=== PATIENT | female | born 1945 | race Caucasian/White ===

== ENCOUNTER 2018-02-02 10:21 | Observation (INO) | payer OTHER ==
--- NOTE | 2018-02-02 11:03 | PDOC ---
History of Present Illness <Ced Murrell - Last Filed: 02/02/18 15:35> - History of Present Illness Initial Comments: The patient is a 72 year old with PMHx of chronic dizziness, HTN, HLD, weak heart, asthma, colon polyps, who was BIBA and presents with right arm injury today. The patient states that she had a colonoscopy yesterday and 3 polyps were found and biopsied. She states that her diarrhea stopped soon after the colonoscopy. She states that she has a h/o chronic dizziness and this morning she felt light-headed and fell on her right side injuring her right wrist. She denies hitting her head or neck. She denies blood per rectum. She denies recent fevers, chills, or headache. She denies recent nausea, vomit,or constipation. She denies recent dysuria, frequency, urgency or hematuria. She denies recent chest pain or shortness of breath. Allergies: NKDA Past surgical history: None reported. Primary Care Physician: Not on Staff <Vicki Purcell - Last Filed: 02/02/18 15:40> - General Chief Complaint: Injury Stated Complaint: Bone Injury Time Seen by Provider: 02/02/18 10:43 Past History <Ced Murrell - Last Filed: 02/02/18 15:35> <Vicki Purcell - Last Filed: 02/02/18 15:40> - Past Medical History Allergies/Adverse Reactions: Allergies Allergy/AdvReac Type Severity Reaction Status Date / Time shellfish derived Allergy Verified 02/02/18 11:17 Home Medications: Ambulatory Orders Aspirin 81 mg PO DAILY 02/02/18 Calcium (Oyster Shell) [Os-Miguel 500Mg -] 500 mg PO BID 02/02/18 Furosemide [Lasix] 20 mg PO DAILY 02/02/18 Lisinopril [Zestril] 2.5 mg PO DAILY 02/02/18 Metformin HCl [Glucophage] 500 mg PO BID 02/02/18 Montelukast Sodium [Singulair] 10 mg PO DAILY 02/02/18 Ranolazine [Ranexa] 1,000 mg PO BID 02/02/18 Rosuvastatin Calcium [Crestor] 40 mg PO DAILY 02/02/18 Sertraline HCl 50 mg PO DAILY 02/02/18 Sitagliptin Phosphate [Januvia] 100 mg PO DAILY 02/02/18 Zolpidem Tartrate [Ambien] 5 mg PO HS 02/02/18 Review of Systems - Review of Systems Comments:: CONSTITUTIONAL: No fever, no chills, no fatigue EYES: No visual changes ENT: No ear pain, no sore throat CARDIOVASCULAR: No chest pain, no palpitations RESPIRATORY: No cough, no SOB GI: No abdominal pain, no nausea, no vomiting, no constipation, no diarrhea GENITOURINARY: No dysuria, no frequency, no hematuria MUSKULOSKELETAL: +right wrist pain. No shoulder pain. No back pain, no joint pain, no myalgias SKIN: No rash NEURO: No headache. +dizziness. <Vicki Purcell - Last Filed: 02/02/18 15:40> *Physical Exam - Physical Exam Comments: 02/02/18 15:36 EXAMINATION CONSTITUTIONAL: Awake and alert, well-nourished, in moderate distress HEAD: Normocephalic; atraumatic EYES: PERRL; EOM intact ENMT: External appears normal; normal oropharynx NECK: Supple; non-tender; no cervical lymphadenopathy CARD: Normal S1, S2; no murmurs, rubs, or gallops RESP: Normal chest excursion with respiration; breath sounds clear and equal bilaterally; no wheezes, rhonchi, or rales ABD: Soft, non-distended; non-tender; no palpable organomegaly, no palpable hernias EXT: + Obvious deformity to the distal right wrist with significant tender to palpation; distal pulses intact; neurovascularly intact distally SKIN: Warm, dry, no rash NEURO: Cranial nerves II through XII grossly intact; motor is 5 of 5 <Ced Murrell - Last Filed: 02/02/18 15:35> Heart Score/ECG Review - ECG Intrepretation Comment:: EKG interpretation: Normal sinus rhythm Nonspecific T wave abnormality Vent rate 69 bpm <Vicki Purcell - Last Filed: 02/02/18 15:40> ED Treatment Course - LABORATORY CBC & Chemistry Diagram: 02/02/18 11:45 02/02/18 11:45 <Ced Murrell - Last Filed: 02/02/18 15:35> - LABORATORY CBC & Chemistry Diagram: 02/02/18 11:45 02/02/18 11:45 - Consult/PCP Time Called: 14:20 (Awaiting callback from Dr. Ghosh) - Additional Consults Time Called: 12:40 (Paged overhead 2x) Consult/PCP: Daniel -ortho Time Called: 13:11 (Left message at office for Dr. Sanchez) <Vicki Purcell - Last Filed: 02/02/18 15:40> Medical Decision Making - Medical Decision Making 02/02/18 15:37 Patient is a 72-year-old female with history of hypertension, hyperlipidemia and diabetes who presents with traumatic deformity to the right wrist consistent with a comminuted, intra-articular, impacted, dorsally angulated distal right radial fracture. Case discussed with orthopedics. Patient will require ORIF. At this time, patient is requiring frequent re-dosing of IV morphine. Will place a knob's for pain control. <Ced Murrell - Last Filed: 02/02/18 15:35> *DC/Admit/Observation/Transfer - Discharge Dispostion Decision to Admit order: Yes - Attestations Physician Attestion: 02/02/18 15:35 The documentation was prepared by the scribe under my direct supervision. I have reviewed the documentation which correctly represents the findings, medical decision-making and critical action taken by me. <Ced Murrell - Last Filed: 02/02/18 15:35> - Attestations Scribe Attestion: 02/02/18 11:20 Documentation prepared by Vicki Purcell, acting as medical health researcher for Ced Murrell MD. <Vicki Purcell - Last Filed: 02/02/18 15:40> Diagnosis at time of Disposition: Weakness Colles' fracture of right radius Qualifiers: Encounter type: initial encounter Fracture type: closed Qualified Code(s): S52.531A - Colles' fracture of right radius, initial encounter for closed fracture Fracture of ulnar styloid Qualifiers: Encounter type: initial encounter Fracture type: closed Fracture alignment: nondisplaced Laterality: right Qualified Code(s): S52.614A - Nondisplaced fracture of right ulna styloid process, initial encounter for closed fracture - Discharge Dispostion Condition at time of disposition: Fair - Referrals Referrals: ON STAFF,NOT [Primary Care Provider] - - Patient Instructions - Post Discharge Activity
[2018-02-02] MEDS ORDERED: SODIUM CHLORIDE 1,000 ML IV STA (11:09)
[2018-02-02] MEDS ORDERED: morphine SULFATE 4 MG/ML VIAL IVPUSH ONE ×2 (11:09→16:25)
[2018-02-02 12:03] LABS: BASO % 0.4 % (0-2.0); EOS % 0.7 % (0-4.5); HEMATOCRIT 37.6 % (32.4-45.2); HEMOGLOBIN 12.5 GM/dL (10.7-15.3); LYMPH % 41.3 % (8-40); MCH 29.7 pg (25.7-33.7); MCHC 33.2 g/dl (32.0-36.0); MEAN CELL VOLUME 89.4 fl (80-96); MEAN PLT VOLUME 9.1 fl (7.5-11.1); MONO % 7.7 % (3.8-10.2); NEUT % 49.9 % (42.8-82.8); PLATELET COUNT 184 K/MM3 (134-434); RDW 13.7 % (11.6-15.6); WHITE BLOOD COUNT 9.4 K/mm3 (4.0-10.0)
[2018-02-02 12:18] LABS: INR 1.14 (0.83-1.09); PROTHROMBIN TIME (PATIENT) 12.9 SEC (9.7-13.0)
[2018-02-02 12:23] LABS: ALBUMIN 3.8 g/dl (3.4-5.0); ALK PHOS 55 U/L (45-117); ANION GAP 11 MMOL/L (8-16); BILIRUBIN,TOTAL 0.6 mg/dL (0.2-1.0); BLOOD UREA NITROGEN 10 mg/dL (7-18); CHLORIDE 108 mmol/L (98-107); CO2 23 mmol/L (21-32); CREATININE 0.9 mg/dL (0.55-1.02); GLUCOSE,RANDOM 108 mg/dL (74-106); POTASSIUM 4.1 mmol/L (3.5-5.1); SGOT/AST 43 U/L (15-37); SGPT/ALT 40 U/L (12-78); SODIUM 142 mmol/L (136-145)
[2018-02-02] MEDS ORDERED: morphine SULFATE 4 MG/ML VIAL ONE ×2 (12:56→16:26)
[2018-02-02] MEDS ORDERED: morphine CARPU-JECT 4 MG/1 ML DISP.SYRIN IVPUSH ONE ×2 (12:56→14:26)
[2018-02-02 14:03] LABS: URINE APPEARANCE CLEAR; URINE BILIRUBIN NEGATIVE (<2.0 mg/dL); URINE COLOR LTYELLOW; URINE GLUCOSE (UA) NEGATIVE (NEGATIVE); URINE KETONE NEGATIVE (NEGATIVE); URINE LEUK ESTERASE TRACE (NEGATIVE); URINE NITRITE NEGATIVE (NEGATIVE); URINE PROTEIN NEGATIVE (NEGATIVE); URINE UROBILINOGEN NEGATIVE mg/dL (0.2-1.0)
[2018-02-02] MEDS ORDERED: LIDOCAINE HCL 2% (50ML VIAL) SQ ONE (14:15)
[2018-02-02 14:19] LABS: EPI CELLS RARE /HPF (FEW); URINE MUCUS RARE
[2018-02-02] MEDS ORDERED: MORPHINE SULFATE 2 MG/ML VIAL ONE (14:27)
[2018-02-02] MEDS ORDERED: metFORMIN HCL 500 MG TABLET (FP) PO ONE (14:40)
[2018-02-02] MEDS ORDERED: metFORMIN HCL 500 MG TABLET (FP) ONE (16:26)
--- NOTE | 2018-02-02 17:13 | HP ---
Admitting History and Physical - Primary Care Physician PCP: Benja Ghosh - Admission Chief Complaint: fell History of Present Illness: -72 year old with PMHx of chronic dizziness, HTN, HLD, weak heart, asthma, colon polyps, who was BIBA and presents with right arm injury today. The patient states that she had a colonoscopy yesterday and 3 polyps were found and biopsied. She states that her diarrhea stopped soon after the colonoscopy. She states that she has a h/o chronic dizziness and this morning she felt light- headed and fell on her right side injuring her right wrist.did not hit head. - Past Medical History Cardiovascular: Yes: HTN, Hyperlipdemia Endocrine: Yes: Diabetes Mellitus - Smoking History Smoking history: Never smoked Have you smoked in the past 12 months: No - Alcohol/Substance Use Hx Alcohol Use: No Home Medications - Allergies Allergies/Adverse Reactions: Allergies Allergy/AdvReac Type Severity Reaction Status Date / Time shellfish derived Allergy Verified 02/02/18 11:17 - Home Medications Home Medications: Ambulatory Orders Aspirin 81 mg PO DAILY 02/02/18 Calcium (Oyster Shell) [Os-Miguel 500Mg -] 500 mg PO BID 02/02/18 Furosemide [Lasix] 20 mg PO DAILY 02/02/18 Lisinopril [Zestril] 2.5 mg PO DAILY 02/02/18 Metformin HCl [Glucophage] 500 mg PO BID 02/02/18 Montelukast Sodium [Singulair] 10 mg PO DAILY 02/02/18 Ranolazine [Ranexa] 1,000 mg PO BID 02/02/18 Rosuvastatin Calcium [Crestor] 40 mg PO DAILY 02/02/18 Sertraline HCl 50 mg PO DAILY 02/02/18 Sitagliptin Phosphate [Januvia] 100 mg PO DAILY 02/02/18 Zolpidem Tartrate [Ambien] 5 mg PO HS 02/02/18 Physical Examination Vital Signs: Vital Signs Temperature 98 F 02/02/18 10:21 Pulse Rate 75 02/02/18 16:35 Respiratory Rate 18 02/02/18 16:35 Blood Pressure 99/57 02/02/18 16:35 O2 Sat by Pulse Oximetry (%) 95 02/02/18 16:35 Constitutional: Yes: Mild Distress HENT: Yes: Atraumatic Neck: Yes: Supple Cardiovascular: Yes: Regular Rate and Rhythm Respiratory: Yes: CTA Bilaterally Gastrointestinal: Yes: Normal Bowel Sounds Extremities: Yes: Other (R hand in dressing/splint) Neurological: Yes: Alert, Oriented Labs: CBC, BMP 02/02/18 11:45 02/02/18 11:45 Imaging - Results X-ray: Report Reviewed Problem List - Problems (1) Colles' fracture of right radius Assessment/Plan: admitted for pain control surgery next week will dc once pain is better controlled Code(s): S52.531A - COLLES' FRACTURE OF RIGHT RADIUS, INIT FOR CLOS FX Qualifiers: Encounter type: initial encounter Fracture type: closed Qualified Code(s) : S52.531A - Colles' fracture of right radius, initial encounter for closed fracture Assessment/Plan Laboratory Tests 02/02/18 02/02/18 02/02/18 11:16 11:45 11:45 WBC 9.4 RBC 4.20 Hgb 12.5 Hct 37.6 MCV 89.4 MCH 29.7 MCHC 33.2 RDW 13.7 Plt Count 184 MPV 9.1 Absolute Neuts (auto) 4.7 Neutrophils % 49.9 Lymphocytes % 41.3 H Monocytes % 7.7 Eosinophils % 0.7 Basophils % 0.4 Nucleated RBC % 0 PT with INR 12.90 INR 1.14 H Sodium 142 Potassium 4.1 Chloride 108 H Carbon Dioxide 23 Anion Gap 11 BUN 10 Creatinine 0.9 Creat Clearance w eGFR > 60 Random Glucose 108 H Calcium 9.0 Magnesium Total Bilirubin 0.6 AST 43 H ALT 40 Alkaline Phosphatase 55 Total Protein 7.0 Albumin 3.8 Urine Color Urine Appearance Urine pH Ur Specific [place] Urine Protein Urine Glucose (UA) Urine Ketones Urine Blood Urine Nitrite Urine Bilirubin Urine Urobilinogen Ur Leukocyte Esterase Urine WBC (Auto) Urine RBC (Auto) Ur Epithelial Cells Urine Mucus 02/02/18 02/02/18 12:05 13:43 WBC RBC Hgb Hct MCV MCH MCHC RDW Plt Count MPV Absolute Neuts (auto) Neutrophils % Lymphocytes % Monocytes % Eosinophils % Basophils % Nucleated RBC % PT with INR INR Sodium Potassium Chloride Carbon Dioxide Anion Gap BUN Creatinine Creat Clearance w eGFR Random Glucose Calcium Magnesium 2.0 Total Bilirubin AST ALT Alkaline Phosphatase Total Protein Albumin Urine Color Ltyellow Urine Appearance Clear Urine pH 8.0 Ur Specific [place] 1.008 Urine Protein Negative Urine Glucose (UA) Negative Urine Ketones Negative Urine Blood Negative Urine Nitrite Negative Urine Bilirubin Negative Urine Urobilinogen Negative Ur Leukocyte Esterase Trace Urine WBC (Auto) 2 Urine RBC (Auto) 1 Ur Epithelial Cells Rare Urine Mucus Rare Active Medications Generic Name Dose Route Start Last Admin Trade Name Freq PRN Reason Stop Dose Admin Aspirin 81 mg 02/03/18 10:00 Asa - PO DAILY [facility] Docusate Sodium 100 mg 02/02/18 22:00 Colace - PO BID [facility] Furosemide 20 mg 02/03/18 10:00 Lasix - PO DAILY [facility] Metformin HCl 500 mg 02/02/18 22:00 Glucophage - PO BID [facility] Montelukast Sodium 10 mg 02/03/18 10:00 Singulair - PO DAILY [facility] Non-Formulary Medication 2.5 mg 02/03/18 10:00 Lisinopril [Zestril] PO DAILY [facility] Oxycodone HCl 10 mg 02/02/18 19:46 Roxicodone - PO Q6H PRN PAIN LEVEL 4 - 6 Rosuvastatin Calcium 40 mg 02/03/18 10:00 Crestor - PO DAILY [facility] Sertraline HCl 50 mg 02/03/18 10:00 Zoloft - PO DAILY [facility] Sitagliptin Phosphate 100 mg 02/03/18 10:00 Januvia - PO DAILY [facility]
[2018-02-02 17:47] VITALS: BMI 31.3
[2018-02-02] MEDS ORDERED: FENTANYL PATCH WASTE MC PRN (20:43)
[2018-02-02] MEDS ORDERED: fentaNYL 25mcg/hr PATCH.TD72 TD SCH (20:45)
[2018-02-02] MEDS: oxyCODONE HCL 5 MG TABLET PO PRN (20:48)
[2018-02-02] MEDS ORDERED: ZOLPIDEM TARTRATE 5 MG TABLET PO SCH (22:00)
[2018-02-02] MEDS ORDERED: ROSUVASTATIN CA 40 MG TABLET PO SCH (22:00)
[2018-02-02] MEDS: DOCUSATE SODIUM 100 MG CAPSULE (FP) PO SCH (22:18)
[2018-02-02] MEDS: ROSUVASTATIN CA 20 MG TABLET (FP) PO SCH (22:18)
[2018-02-02] MEDS: MONTELUKAST NA 10 MG TABLET PO SCH (22:19)
[2018-02-03] MEDS: oxyCODONE HCL 5 MG TABLET PO PRN ×3 (03:41→14:58)
[2018-02-03] MEDS: sitaGLIPtin PHOSPHATE 100 MG TABLET (FP) PO SCH (06:35)
[2018-02-03] MEDS: metFORMIN HCL 500 MG TABLET (FP) PO SCH ×2 (06:35→17:28)
--- NOTE | 2018-02-03 08:59 | CON.ORTH ---
Consult Reason for Consultation:: right wrist fx - Past Medical History Cardio/Vascular: Yes: HTN, Hyperlipdemia Endocrine: Yes: Diabetes Mellitus - Alcohol/Substance Use Hx Alcohol Use: No - Smoking History Smoking history: Never smoked Have you smoked in the past 12 months: No Home Medications - Allergies Allergies/Adverse Reactions: Allergies Allergy/AdvReac Type Severity Reaction Status Date / Time shellfish derived Allergy Verified 02/02/18 11:17 - Home Medications Home Medications: Ambulatory Orders Aspirin 81 mg PO DAILY 02/02/18 Calcium (Oyster Shell) [Os-Miguel 500Mg -] 500 mg PO BID 02/02/18 Furosemide [Lasix] 20 mg PO DAILY 02/02/18 Lisinopril [Zestril] 2.5 mg PO DAILY 02/02/18 Metformin HCl [Glucophage] 500 mg PO BID 02/02/18 Montelukast Sodium [Singulair] 10 mg PO DAILY 02/02/18 Ranolazine [Ranexa] 1,000 mg PO BID 02/02/18 Rosuvastatin Calcium [Crestor] 40 mg PO DAILY 02/02/18 Sertraline HCl 50 mg PO DAILY 02/02/18 Sitagliptin Phosphate [Januvia] 100 mg PO DAILY 02/02/18 Zolpidem Tartrate [Ambien] 5 mg PO HS 02/02/18 Physical Exam for Ortho Vital Signs: Vital Signs Temperature 98.3 F 02/03/18 05:21 Pulse Rate 68 02/03/18 05:21 Respiratory Rate 18 02/03/18 05:21 Blood Pressure 110/60 02/03/18 05:21 O2 Sat by Pulse Oximetry (%) 95 02/02/18 19:48 Labs: CBC, BMP 02/02/18 11:45 02/02/18 11:45 INR, PTT INR 1.14 (0.83-1.09) H 02/02/18 11:16 - Upper Extremity Wrist: Yes: Right, Deformity, Pain, Swelling, Tenderness, Other (splint intact, nvi) Imaging - Results X-ray: Report Reviewed, Image Reviewed Assessment/Plan 72 year old with PMHx of chronic dizziness, HTN, HLD, weak heart, asthma, colon polyps, who was BIBA and presents with right arm injury today. The patient states that she had a colonoscopy yesterday and 3 polyps were found and biopsied. She states that her diarrhea stopped soon after the colonoscopy. She states that she has a h/o chronic dizziness and this morning she felt light- headed and fell on her right side injuring her right wrist.did not hit head. a/p- right displaced distal radius fx Risks and benefits were d/w pt and daughter in detail will need orif Pt may be d/c'd as surgery will not take place until next week due to swelling Strict elevation f/u in the office on Wednesday to schedule surgery d/w with daughter who understands and agrees with plan d/w Dr. Sanchez
[2018-02-03] MEDS: LISINOPRIL 5 MG TABLET (FP) PO SCH (10:45)
[2018-02-03] MEDS: DOCUSATE SODIUM 100 MG CAPSULE (FP) PO SCH ×2 (10:45→21:47)
[2018-02-03] MEDS: ASPIRIN 81 MG CHEWABLE TABLETS PO SCH (10:45)
[2018-02-03] MEDS: FUROSEMIDE 20 MG TABLET (FP) PO SCH (10:46)
[2018-02-03] MEDS: SERTRALINE HCL 50 MG TABLET (FP) PO SCH (10:48)
--- NOTE | 2018-02-03 11:56 | CON.CARD ---
Consult Consult Specialty:: Cardiology Referred by:: Benja Ghosh MD Reason for Consultation:: Pre-operative cardiovascular evaluation - History of Present Illness Chief Complaint: Right arm pain post fall History of Present Illness: 72 year old with PMHx of chronic dizziness, HTN, HLD, cardiomyopathy, asthma, colon polyps, presented after fall without syncope with right displaced distal radius fx which was immobilized and planned for ORIF next week. She sees Dr. Dupree in [place] for cardiology. Patient reports being at baseline dyspnea on exertion, but denies chest pain, palpitations, near or true syncope, orthopnea, PND or LE edema. - History Source History Provided By: Medical Record Limitations to Obtaining History: Poor Historian - Past Medical History Cardio/Vascular: Yes: HTN, Hyperlipdemia Endocrine: Yes: Diabetes Mellitus - Alcohol/Substance Use Hx Alcohol Use: No - Smoking History Smoking history: Never smoked Have you smoked in the past 12 months: No Home Medications - Allergies Allergies/Adverse Reactions: Allergies Allergy/AdvReac Type Severity Reaction Status Date / Time shellfish derived Allergy Verified 02/02/18 11:17 - Home Medications Home Medications: Ambulatory Orders Aspirin 81 mg PO DAILY 02/02/18 Calcium (Oyster Shell) [Os-Miguel 500Mg -] 500 mg PO BID 02/02/18 Furosemide [Lasix] 20 mg PO DAILY 02/02/18 Lisinopril [Zestril] 2.5 mg PO DAILY 02/02/18 Metformin HCl [Glucophage] 500 mg PO BID 02/02/18 Montelukast Sodium [Singulair] 10 mg PO DAILY 02/02/18 Ranolazine [Ranexa] 1,000 mg PO BID 02/02/18 Rosuvastatin Calcium [Crestor] 40 mg PO DAILY 02/02/18 Sertraline HCl 50 mg PO DAILY 02/02/18 Sitagliptin Phosphate [Januvia] 100 mg PO DAILY 02/02/18 Zolpidem Tartrate [Ambien] 5 mg PO HS 02/02/18 Review of Systems - Review of Systems Musculoskeletal: reports: Extremity Pain (Right arm pain) Vital Signs: Vital Signs Temperature 98.5 F 02/03/18 09:06 Pulse Rate 75 02/03/18 09:06 Respiratory Rate 18 02/03/18 09:06 Blood Pressure 131/69 02/03/18 09:06 O2 Sat by Pulse Oximetry (%) 95 02/02/18 19:48 Constitutional: Yes: No Distress, Calm, Thin Neck: Yes: Supple Respiratory: Yes: Regular, CTA Bilaterally Gastrointestinal: Yes: Normal Bowel Sounds, Soft Cardiovascular: Yes: Regular Rate and Rhythm JVD: No Carotid Bruit: No Heart Sounds: Yes: S1, S2 Murmur: Yes: Systolic Murmur, Grade 1 Edema: No - Other Data Labs, Other Data: CBC, BMP 02/02/18 11:45 02/02/18 11:45 INR, PTT INR 1.14 (0.83-1.09) H 02/02/18 11:16 NSR @ 69 with nonspec T wave changes Imaging - Results Chest X-ray: Report Reviewed (NAD) Problem List - Problems (1) Cardiomyopathy Code(s): I42.9 - CARDIOMYOPATHY, UNSPECIFIED Qualifiers: Cardiomyopathy type: unspecified Qualified Code(s): I42.9 - Cardiomyopathy , unspecified (2) Hyperlipidemia associated with type 2 diabetes mellitus Code(s): E11.69 - TYPE 2 DIABETES MELLITUS WITH OTHER SPECIFIED COMPLICATION; E78.5 - HYPERLIPIDEMIA, UNSPECIFIED (3) Type 2 diabetes mellitus Code(s): E11.9 - TYPE 2 DIABETES MELLITUS WITHOUT COMPLICATIONS Qualifiers: Diabetes mellitus truck terminal manager insulin use: without truck terminal manager use (4) Diastolic dysfunction Code(s): I51.9 - HEART DISEASE, UNSPECIFIED (5) Pre-operative cardiovascular examination Code(s): Z01.810 - ENCOUNTER FOR PREPROCEDURAL CARDIOVASCULAR EXAMINATION (6) Colles' fracture of right radius Code(s): S52.531A - COLLES' FRACTURE OF RIGHT RADIUS, INIT FOR CLOS FX Qualifiers: Encounter type: initial encounter Fracture type: closed Qualified Code(s) : S52.531A - Colles' fracture of right radius, initial encounter for closed fracture (7) Hypertensive cardiovascular disease Code(s): I11.9 - HYPERTENSIVE HEART DISEASE WITHOUT HEART FAILURE Qualifiers: Heart failure presence: without heart failure Qualified Code(s): I11.9 - Hypertensive heart disease without heart failure Assessment/Plan 1. Pre-operative cardiovascular evaluation prior to ORIF right displaced distal radius fx as outpatient 2. Cardiomyopathy 3. HTN 4. Hyperlipidemia 5. Asthma 6. Type 2 DM 7. Diastolic dysfunction P:1. Attempt to obtain and review records from Dr. Dupree office, clinically given absence of symptoms of acute coronary syndrome, decompensated CHF or malignant arrhythmia, may proceed with ORIF right distal radial fx from CV- standpoint without further testing 2. Hold ASA shu-op, continue Lasix 20 qd, lisinopril 2.5 qd, Crestor 40 qd, Ranexa 100 0 bid 3. Ideally patient should see Dr. Dupree in office for pre-op CV evaluation as outpatient prior to surgery to review previous testing results 4. Thank you for consultative opportunity
--- NOTE | 2018-02-03 12:49 | CONSULT ---
Consult Consult Specialty:: PM&R - History of Present Illness Chief Complaint: R wrist pain History of Present Illness: This is a 72 year old woman with a medical history of chronic dizziness, HTN, HLD, cardiomyopathy, asthma, colon polyps, DM, who presented to the ED 02/02/18 following a fall resulting in R wrist pain. R wrist/ forearm XR showed distal radial fx. Ortho consult recommended ORIF once swelling improves, tentatively for next week. Cardiology was consulted for cardiac clearance. Physiatry is being consulted for further recommendations. - History Source History Provided By: Patient, Medical Record - Past Medical History Cardio/Vascular: Yes: HTN, Hyperlipdemia Endocrine: Yes: Diabetes Mellitus - Alcohol/Substance Use Hx Alcohol Use: No - Smoking History Smoking history: Never smoked Have you smoked in the past 12 months: No - Social History Usual Living Arrangement: Alone (lives alone in apartment without stairs, previously ambulated with both SC and RW) Home Medications - Allergies Allergies/Adverse Reactions: Allergies Allergy/AdvReac Type Severity Reaction Status Date / Time shellfish derived Allergy Verified 02/02/18 11:17 - Home Medications Home Medications: Ambulatory Orders Aspirin 81 mg PO DAILY 02/02/18 Calcium (Oyster Shell) [Os-Miguel 500Mg -] 500 mg PO BID 02/02/18 Furosemide [Lasix] 20 mg PO DAILY 02/02/18 Lisinopril [Zestril] 2.5 mg PO DAILY 02/02/18 Metformin HCl [Glucophage] 500 mg PO BID 02/02/18 Montelukast Sodium [Singulair] 10 mg PO DAILY 02/02/18 Ranolazine [Ranexa] 1,000 mg PO BID 02/02/18 Rosuvastatin Calcium [Crestor] 40 mg PO DAILY 02/02/18 Sertraline HCl 50 mg PO DAILY 02/02/18 Sitagliptin Phosphate [Januvia] 100 mg PO DAILY 02/02/18 Zolpidem Tartrate [Ambien] 5 mg PO HS 02/02/18 Review of Systems Findings/Remarks: denies fevers, chills, hearing/ vision/ mood changes, CP, SOB, abdominal pain, nausea, vomiting, diarrhea, dysuria, numbness/ paresthesias BUE/ BLE. She notes being constipated as well as R wrist pain without other muscle/ joint pain. Physical Exam Vital Signs: Vital Signs Temperature 98.5 F 02/03/18 09:06 Pulse Rate 75 02/03/18 09:06 Respiratory Rate 18 02/03/18 09:06 Blood Pressure 131/69 02/03/18 09:06 O2 Sat by Pulse Oximetry (%) 95 02/03/18 11:48 Musculoskeletal: Yes: Other (General: calm elderly HF sitting in chair NAD N/M: full LUE ROM, 4+/5 LUE; unable to range R shoulder due to pain and unable to range remainder of LUE due to long- arm cast, +R fingertip wiggling; 4+/5 B HF then 5-/5 BLE; Pinprick Intact BUE/ BLE Extremities: no BLE pitting edema, no B calf tenderness, RUE in LAC and sling) Labs: CBC, BMP 02/02/18 11:45 02/02/18 11:45 Imaging - Results Chest X-ray: Report Reviewed (02/02/18 no acute disease) X-ray: Report Reviewed (02/02/18 R wrist/ forearm as per HPI) Assessment/Plan Impression: 1) Deficits mobility/ ADLs 2) Deconditioning 3) Gait abnormality 4) R wrist fx 02/02/18 5) 02/02/18 fall with chronic dizziness 6) hx HTN, HLD, cardiomyopathy 7) hx asthma 8) hx colon polyps s/p 02/01/18 colonoscopy 9) DM 10) Obesity Recommendations: 1) PT for stretching strengthening ROM (including R shoulder and R fingers) balance and functional mobility 2) Falls, safety precautions 3) Cardiopulmonary precautions 4) Diabetic precautions 5) NWB R wrist/ hand, may bear weight through R elbow as tolerated; continue sling 6) DVT ppx: encourage ambulation and consider SCDs until ambulation improves 7) Bowel regimen: consider increasing Colace to TID and start Senna 2 tabs qHS 8) Skin protection: float heels, frequent turning 9) D/w pt to keep hand elevated compared to elbow to prevent edema in R hand 10) Nutrition consult for obesity 11) ORIF planned for next week once R hand swelling reduced 12) Discharge planning: depending on her balance and progress in therapy, she may benefit from inpatient rehabilitation once medically stable versus home with home care Thank you for this referral.
--- NOTE | 2018-02-03 15:54 | EKG ---
Test Reason : Blood Pressure : / mmHG Vent. Rate : 069 BPM Atrial Rate : 069 BPM P-R Int : 142 ms QRS Dur : 072 ms QT Int : 422 ms P-R-T Axes : 049 004 039 degrees QTc Int : 452 ms POOR DATA QUALITY, INTERPRETATION MAY BE ADVERSELY AFFECTED NORMAL SINUS RHYTHM NONSPECIFIC T WAVE ABNORMALITY ABNORMAL ECG NO PREVIOUS ECGS AVAILABLE Confirmed by Diana Quezada ([id number]) on 02/03/2018 3:54:22 PM Referred By: Confirmed By:Diana Quezada
--- NOTE | 2018-02-03 17:33 | PN ---
Progress Note, Physician History of Present Illness: still has a lot of pain - Current Medication List Current Medications: Active Medications Aspirin (Asa -) 81 mg PO DAILY [facility] Last Admin: 02/03/18 10:45 Dose: 81 mg Docusate Sodium (Colace -) 100 mg PO BID [facility] Last Admin: 02/03/18 10:45 Dose: 100 mg Furosemide (Lasix -) 20 mg PO DAILY [facility] Last Admin: 02/03/18 10:46 Dose: 20 mg Lisinopril (Prinivil) 2.5 mg PO DAILY [facility] Last Admin: 02/03/18 10:45 Dose: 2.5 mg [facility] Admin: 02/03/18 17:28 Dose: Not Given Miscellaneous (Duragesic Patch Waste) 1 each [facility] PRN PRN PRN Reason: PAIN Montelukast Sodium (Singulair -) 10 mg PO [facility] Last Admin: 02/02/18 22:19 Dose: 10 mg Morphine Sulfate (Morphine Sulfate) 2 mg IVPUSH Q4H PRN PRN Reason: PAIN LEVEL 4 - 6 Oxycodone HCl (Roxicodone -) 10 mg PO Q6H PRN PRN Reason: PAIN LEVEL 4 - 6 Last Admin: 02/03/18 14:58 Dose: 10 mg Rosuvastatin Calcium (Crestor -) 40 mg PO [facility] Last Admin: 02/02/18 22:18 Dose: 40 mg Sertraline HCl (Zoloft -) 50 mg PO DAILY [facility] Last Admin: 02/03/18 10:48 Dose: 50 mg Sitagliptin Phosphate (Januvia -) 100 mg PO DAILY@0700 [facility] Last Admin: 02/03/18 06:35 Dose: 100 mg - Objective Vital Signs: Vital Signs Temperature 98.2 F 02/03/18 14:00 Pulse Rate 75 02/03/18 09:06 Respiratory Rate 18 02/03/18 09:06 Blood Pressure 131/69 02/03/18 09:06 O2 Sat by Pulse Oximetry (%) 95 02/03/18 11:48 HENT: Yes: Atraumatic Neck: Yes: Supple Cardiovascular: Yes: Regular Rate and Rhythm Respiratory: Yes: CTA Bilaterally Extremities: Yes: Other (R wrist in wrap) Neurological: Yes: Alert, Oriented Labs: CBC, BMP 02/02/18 11:45 02/02/18 11:45 INR, PTT INR 1.14 (0.83-1.09) H 02/02/18 11:16 Problem List - Problems (1) Colles' fracture of right radius Code(s): S52.531A - COLLES' FRACTURE OF RIGHT RADIUS, INIT FOR CLOS FX Qualifiers: Encounter type: initial encounter Fracture type: closed Qualified Code(s) : S52.531A - Colles' fracture of right radius, initial encounter for closed fracture
[2018-02-03] MEDS ORDERED: FENTANYL PATCH WASTE TD PRN (17:46)
[2018-02-03] MEDS: MORPHINE SULFATE 2 MG/ML VIAL IVPUSH PRN ×2 (17:47→21:46)
[2018-02-03] MEDS ORDERED: fentaNYL 50mcg/hr PATCH.TD72 TD SCH (18:00)
[2018-02-03] MEDS: ROSUVASTATIN CA 20 MG TABLET (FP) PO SCH (21:47)
[2018-02-03] MEDS: MONTELUKAST NA 10 MG TABLET PO SCH (21:47)
[2018-02-04] MEDS: oxyCODONE HCL 5 MG TABLET PO PRN ×2 (02:37→08:28)
[2018-02-04] MEDS: metFORMIN HCL 500 MG TABLET (FP) PO SCH (06:40)
[2018-02-04] MEDS: sitaGLIPtin PHOSPHATE 100 MG TABLET (FP) PO SCH (06:40)
[2018-02-04] MEDS: SERTRALINE HCL 50 MG TABLET (FP) PO SCH (09:19)
[2018-02-04] MEDS: DOCUSATE SODIUM 100 MG CAPSULE (FP) PO SCH (09:19)
[2018-02-04] MEDS: LISINOPRIL 5 MG TABLET (FP) PO SCH (09:19)
[2018-02-04] MEDS: FUROSEMIDE 20 MG TABLET (FP) PO SCH (09:19)
[2018-02-04] MEDS: ASPIRIN 81 MG CHEWABLE TABLETS PO SCH (09:19)
[2018-02-04 10:10] VITALS: BP 100/54; PULSE 70; TEMP 98.3
--- NOTE | 2018-02-04 11:40 | PN ---
Progress Note (short form) - Note Progress Note: Ortho Pt seen and examined s/p right distal radius fx splint intact, nvi a/p ORIF for next week either d/c home and f/u as outpt/stay until next week strict elevation pain control d/w Dr. Sanchez
[2018-02-04] MEDS: MORPHINE SULFATE 2 MG/ML VIAL IVPUSH PRN (13:00)
--- NOTE | 2018-02-04 18:04 | DS ---
Physical Examination Vital Signs: Vital Signs Temperature 98.3 F 02/04/18 10:00 Pulse Rate 70 02/04/18 10:00 Respiratory Rate 20 02/04/18 10:00 Blood Pressure 100/54 02/04/18 10:00 O2 Sat by Pulse Oximetry (%) 97 02/04/18 11:00 HENT: Yes: Atraumatic Neck: Yes: Supple Cardiovascular: Yes: Regular Rate and Rhythm Respiratory: Yes: CTA Bilaterally Gastrointestinal: Yes: Normal Bowel Sounds Extremities: Yes: WNL Neurological: Yes: Alert, Oriented Labs: CBC, BMP 02/02/18 11:45 02/02/18 11:45 Discharge Summary Reason For Visit: COLLES FRACTURE OF RIGHT RADIUS Condition: Fair - Instructions Referrals: ON STAFF,NOT [Primary Care Provider] - Disposition: HOME - Home Medications Comprehensive Discharge Medication List: Ambulatory Orders Aspirin 81 mg PO DAILY 02/02/18 Calcium (Oyster Shell) [Os-Miguel 500MG -] 500 mg PO BID 02/02/18 Furosemide [Lasix] 20 mg PO DAILY 02/02/18 Lisinopril [Zestril] 2.5 mg PO DAILY 02/02/18 Metformin HCl [Glucophage] 500 mg PO BID 02/02/18 Montelukast Sodium [Singulair] 10 mg PO DAILY 02/02/18 Ranolazine [Ranexa] 1,000 mg PO BID 02/02/18 Rosuvastatin Calcium [Crestor] 40 mg PO DAILY 02/02/18 Sertraline HCl 50 mg PO DAILY 02/02/18 Sitagliptin Phosphate [Januvia] 100 mg PO DAILY 02/02/18 Zolpidem Tartrate [Ambien] 5 mg PO HS 02/02/18 Oxycodone HCl/Acetaminophen [Oxycodone-Acetaminophen 5-325] 1 each PO Q6H #20 tablet MDD 3 02/03/18 [place] home
== END 2018-02-04 14:55 | disposition home or self-care (01) ==
LOC: JER 10:21 → JERBED 15:38 → INTOOBSV 15:38 → J6S 17:24 → J6W 02-03 18:00 → J6S 02-03 18:01
PROVIDERS: ADMIT Internal Medicine; ATTEND Internal Medicine
PROC: 2W3CX1Z Immobilization of Right Lower Arm using Splint (ICD-10-PCS; principal; 2018-02-02)
PROC: 3E033NZ Introduction of Analgesics, Hypnotics, Sedatives into Peripheral Vein, Percutaneous Approach (ICD-10-PCS; 2018-02-02)
PROC: 3E0337Z Introduction of Electrolytic and Water Balance Substance into Peripheral Vein, Percutaneous Approach (ICD-10-PCS; 2018-02-02)
DX: S52.531A Colles' fracture of right radius, initial encounter for closed fracture (principal); S52.614A Nondisplaced fracture of right ulna styloid process, initial encounter for closed fracture; R53.1 Weakness; E78.5 Hyperlipidemia, unspecified; J45.909 Unspecified asthma, uncomplicated; Z91.013 Allergy to seafood; Z79.82 Long term (current) use of aspirin; Z79.84 Long term (current) use of oral hypoglycemic drugs; I42.9 Cardiomyopathy, unspecified; E11.69 Type 2 diabetes mellitus with other specified complication; I11.9 Hypertensive heart disease without heart failure; E66.9 Obesity, unspecified; Z68.31 Body mass index [BMI] 31.0-31.9, adult
CPT/HCPCS: 29125; 36415; 71045-TC-FY; 73090-TC-RT-FY; 73110-TC-RT-FY; 80053; 81003; 81015; 82962; 83735; 85025; 85610; 93005; 93010; 96374; 96376; 99282-25; G0378; J7030

== ENCOUNTER 2018-08-12 14:46 | Emergency (ER) | payer OTHER ==
[2018-08-12 15:07] VITALS: BP 129/75; PULSE 68; TEMP 97.7; BMI 35.2
--- NOTE | 2018-08-12 15:35 | PDOC ---
History of Present Illness - General Chief Complaint: Injury Stated Complaint: FALL - History of Present Illness Initial Comments: 08/12/18 15:33 73 yo female with PMH NIDDM, HTN, HLD, questionable CHF?, chronic dizziness leading to recurrent falls, presents following a fall last night. Her cupola worker and neighbor are both present. The neighbor was with her until around 11:30 pm last night. The pt apparently fell sometime shortly after that. She states that she became dizzy and fell backwards, hitting her head on a table. She currently complains of pain in her head, neck and diffusely throughout her back. Welding Machine Operator Arc present states she has two cardiologists, one who follows her regularly and one she was sent to to have a "chip monitor put in her chest for a year." She denies any recent medication changes and states that her "water pill" was even stopped a while back without improvement of these episodes. Past History - Past Medical History Allergies/Adverse Reactions: Allergies Allergy/AdvReac Type Severity Reaction Status Date / Time shellfish derived Allergy Verified 08/12/18 15:09 Home Medications: Ambulatory Orders Aspirin 81 mg PO DAILY 02/02/18 Calcium (Oyster Shell) [Os-Miguel 500MG -] 500 mg PO BID 02/02/18 Furosemide [Lasix] 20 mg PO DAILY 02/02/18 Lisinopril [Zestril] 2.5 mg PO DAILY 02/02/18 Metformin HCl [Glucophage] 500 mg PO BID 02/02/18 Montelukast Sodium [Singulair] 10 mg PO DAILY 02/02/18 Ranolazine [Ranexa] 1,000 mg PO BID 02/02/18 Rosuvastatin Calcium [Crestor] 40 mg PO DAILY 02/02/18 Sertraline HCl 50 mg PO DAILY 02/02/18 Sitagliptin Phosphate [Januvia] 100 mg PO DAILY 02/02/18 Zolpidem Tartrate [Ambien] 5 mg PO HS 02/02/18 Oxycodone HCl/Acetaminophen [Oxycodone-Acetaminophen 5-325] 1 each PO Q6H #20 tablet MDD 3 02/03/18 Cardiac Disorders: Yes (a fib/"chip on heart to help her heart pump") COPD: No Diabetes: Yes GI Disorders: Yes (gerd ulcers, liver sx (biopsy)) Hypercholesterolemia: Yes Psychiatric Problems: Yes (depression and anxiety) - Surgical History Abdominal Surgery: Yes (liver bipsy) - Suicide/Smoking/Psychosocial Hx Smoking History: Never smoked Have you smoked in the past 12 months: No Information on smoking cessation initiated: No Hx Alcohol Use: No Drug/Substance Use Hx: No Substance Use Type: None *Physical Exam - Vital Signs Last Vital Signs Temp Pulse Resp BP Pulse Ox 97.7 F 68 16 129/75 100 08/12/18 14:46 08/12/18 14:46 08/12/18 14:46 08/12/18 14:46 08/12/18 14:46 - Physical Exam Comments: 08/12/18 15:34 GEN: A&O, no acute distress HEENT: 3 cm laceration posterior lateral scalp, dried blood noted in multiple areas of scalp both anteriorly and posteriorly on the left side, PERRL, EOMI NECK: no carotid bruits, supple, no lymphadenopathy HEART: RRR, no murmurs noted LUNGS: CTA b/l ABDOMEN: Soft, nontender EXTREMITIES: no peripheral edema MSK: b/l msk tenderness in paraspinal region of cervical and lumbar spine, no point tenderness. Moderate Sedation - Procedure Monitoring Vital Signs: Procedure Monitoring Vital Signs Temperature 97.7 F 08/12/18 14:46 Pulse Rate 68 08/12/18 14:46 Respiratory Rate 16 08/12/18 14:46 Blood Pressure 129/75 08/12/18 14:46 O2 Sat by Pulse Oximetry (%) 100 08/12/18 14:46 ED Treatment Course - LABORATORY CBC & Chemistry Diagram: 08/12/18 16:42 08/12/18 16:18 Medical Decision Making - Medical Decision Making 08/12/18 16:39 73 yo female with repeated dizziness episodes and repeated falls comes in following a fall last night with head trauma, laceration, head/neck/lumbar spine pain. Welding Machine Operator Arc requesting narcotic testing as well as patient has had history of ambien abuse and believes that narcotics could be playing a role in the dizziness spells and falls. CBC, CMP, UA, UTox, Cardiac profile, EKG, Head CT, Cervical Spine CT pending IV tylenol for pain control 08/12/18 18:28 Wound irrigated thoroughly, 7 tana placed in head laceration on lateral scalp. Bacitracin applied to wound. CT negative for acute fracture or bleed. CBC, CMP, UA, UTox unremarkable Pt can be discharged with close follow up with PCP and informed to return in 10 days for wound check and probable staple removal. 08/12/18 18:45 Family counseled about the patient's need for further more extensive supervision in order to prevent further falls and possibly more serious outcomes. *DC/Admit/Observation/Transfer Diagnosis at time of Disposition: Laceration of head - Discharge Dispostion Disposition: HOME Condition at time of disposition: Stable Decision to Admit order: No - Referrals - Patient Instructions Printed Discharge Instructions: How to Prevent Falls, DI for Closed Head Injury Additional Instructions: You were seen in the emergency room after a fall with a head injury. A CT scan of your head and neck were done which did not reveal any concerning fracture or bleeding in your head. The laceration on your head was cleaned thoroughly and 7 tana were placed along with bacitracin (Neosporin) to your wound. At this point you are medically safe for discharge. You can take Tylenol for any further pain as needed, appropriately according to the packing instructions. You can place bacitracin (Neosporin) on your wound to help with healing and to help prevent any infection. You should wait 24-48 hours before carefully washing your hair. You should see your primary care physician within one week for follow up. You should follow up here in 10 days (Wednesday, 08/22) for a wound check and to possibly have the tana removed. It is recommended that you have more supervision at home as you have a history or repeated falls recently, and if you continue to fall, especially while unsupervised, it can be very dangerous for you. - Post Discharge Activity
[2018-08-12] MEDS ORDERED: ACETAMINOPHEN 1000 MG/100 ML VIAL (NON FORMULARY) IVPB ONE (16:02)
[2018-08-12] MEDS ORDERED: ACETAMINOPHEN INJECTION 100 ML IVPB ONE (16:44)
[2018-08-12 16:53] LABS: BASO % 0.2 % (0-2.0); HEMATOCRIT 40.1 % (32.4-45.2); HEMOGLOBIN 13.5 GM/dL (10.7-15.3); LYMPH % 37.8 % (8-40); MCH 30.8 pg (25.7-33.7); MCHC 33.6 g/dl (32.0-36.0); MEAN CELL VOLUME 91.5 fl (80-96); MEAN PLT VOLUME 9.8 fl (7.5-11.1); MONO % 7.3 % (3.8-10.2); NEUT % 52.7 % (42.8-82.8); PLATELET COUNT 177 K/MM3 (134-434); RBC 4.39 M/mm3 (3.60-5.2); RDW 13.8 % (11.6-15.6); WHITE BLOOD COUNT 8.7 K/mm3 (4.0-10.0)
--- NOTE | 2018-08-12 16:57 | PDOC ---
Attending Attestation - Resident Resident Name: Finesse Benitez - ED Attending Attestation I have performed the following: I have examined & evaluated the patient, The case was reviewed & discussed with the resident, I agree w/resident's findings & plan - HPI HPI: 08/12/18 17:01 The patient is a 73 year old female, with a significant past medical history of chronic dizziness, frequent falls, HTN, HLD, weak heart, asthma, colon polyps , who presents to the emergency department s/p fall. As per patient she was mopping the floor last night when fell backwards yesterday hitting her head on a side table and went back to bed. Upon daughter's arrival this morning her mom showed her the blood and told her the episode. Allergies: Shellfish. - Physicial Exam PE: 08/12/18 18:16 GENERAL: Awake, alert, and fully oriented, in no acute distress HEAD: +3 cm laceration posterior lateral scalp NECK: Normal ROM, supple, no lymphadenopathy, JVD, or masses LUNGS: Breath sounds equal, clear to auscultation bilaterally. No wheezes, and no crackles HEART: Regular rate and rhythm, normal S1 and S2, no murmurs, rubs or gallops ABDOMEN: Soft, nontender, normoactive bowel sounds. No guarding, no rebound. No masses EXTREMITIES: Normal range of motion, no edema. No clubbing or cyanosis. No cords, erythema, or tenderness NEUROLOGICAL: Cranial nerves II through XII grossly intact. Normal speech. <Lizzette Mo - Last Filed: 08/12/18 18:15> - Medical Decision Making 08/14/18 00:43 Pt presents to the ED after mechanical slip and fall while mopping the floor last night. Denies LOC. Ct head and C spine performed to rule out intracrainal bleed or cervical spinal injury and is negative. Patient is clear that this was a mechanical fall and not syncope. LAceration repaired in the ED. Will discharged home. 08/14/18 00:52 <Ev Hernandez - Last Filed: 08/14/18 00:52> Attestations - Attestations 08/12/18 17:11 Documentation prepared by Lizzette Mo, acting as certified medical assistant for Ev Hernandez MD. <Lizzette Mo - Last Filed: 08/12/18 18:15>
[2018-08-12 17:07] LABS: URINE APPEARANCE CLEAR; URINE BILIRUBIN NEGATIVE (<2.0 mg/dL); URINE COLOR LTYELLOW; URINE GLUCOSE (UA) NEGATIVE (NEGATIVE); URINE KETONE NEGATIVE (NEGATIVE); URINE LEUK ESTERASE 1+ (NEGATIVE); URINE NITRITE NEGATIVE (NEGATIVE); URINE PROTEIN NEGATIVE (NEGATIVE); URINE UROBILINOGEN NEGATIVE mg/dL (0.2-1.0)
[2018-08-12 17:08] LABS: EPI CELLS RARE /HPF (FEW); URINE HYALINE CAST 1 /lpf
[2018-08-12 17:08] LABS: INR 1.12 (0.83-1.09); PROTHROMBIN TIME (PATIENT) 13.2 SEC (9.7-13.0)
[2018-08-12 17:21] LABS: COCAINE, UR NEGATIVE ng/ml (CUTOFF=300); METHADONE, UR NEGATIVE ng/ml (CUTOFF=300); OPIATES, URI NEGATIVE ng/ml (CUTOFF=300); PHENCYCLIDINE,URINE NEGATIVE ng/ml (CUTOFF=25); URINE AMPHETAMINES NEGATIVE ng/ml (CUTOFF=500); URINE BARBITURATES NEGATIVE ng/ml (CUTOFF=200); URINE BENZODIAZEPINES NEGATIVE ng/ml (CUTOFF=200)
[2018-08-12 17:21] LABS: ALBUMIN 4.4 g/dl (3.4-5.0); ALK PHOS 97 U/L (45-117); ANION GAP 7 MMOL/L (8-16); BILIRUBIN,TOTAL 0.6 mg/dL (0.2-1); BLOOD UREA NITROGEN 20 mg/dL (7-18); CALCIUM 9.5 mg/dL (8.5-10.1); CHLORIDE 102 mmol/L (98-107); CO2 29 mmol/L (21-32); GLUCOSE,RANDOM 147 mg/dL (74-106); POTASSIUM 4.3 mmol/L (3.5-5.1); SGOT/AST 41 U/L (15-37); SGPT/ALT 40 U/L (13-61); SODIUM 138 mmol/L (136-145); TOT PROT 8.2 g/dl (6.4-8.2)
--- NOTE | 2018-08-12 18:29 | PDOC ---
*Physical Exam - Vital Signs Last Vital Signs Temp Pulse Resp BP Pulse Ox 97.7 F 68 16 129/75 100 08/12/18 14:46 08/12/18 14:46 08/12/18 14:46 08/12/18 14:46 08/12/18 14:46 ED Treatment Course - LABORATORY CBC & Chemistry Diagram: 08/12/18 16:42 08/12/18 16:18 - ADDITIONAL ORDERS Additional order review: Laboratory Results 08/12/18 08/12/18 08/12/18 16:45 16:45 16:42 PT with INR 13.20 H INR 1.12 H Sodium Potassium Chloride Carbon Dioxide Anion Gap BUN Creatinine Creat Clearance w eGFR Random Glucose Calcium Total Bilirubin AST ALT Alkaline Phosphatase Creatine Kinase Creatine Kinase Index CK-MB (CK-2) Troponin I Total Protein Albumin Urine Color Ltyellow Urine Appearance Clear Urine pH 7.0 Ur Specific [place] 1.009 L Urine Protein Negative Urine Glucose (UA) Negative Urine Ketones Negative Urine Blood Negative Urine Nitrite Negative Urine Bilirubin Negative Urine Urobilinogen Negative Ur Leukocyte Esterase 1+ H Urine WBC (Auto) 1 Urine RBC (Auto) <1 Ur Epithelial Cells Rare Hyaline Casts 1 Opiates Screen Negative Methadone Screen Negative Barbiturate Screen Negative Phencyclidine Screen Negative Ur Amphetamines Screen Negative MDMA (Ecstasy) Screen Negative Benzodiazepines Screen Negative Cocaine Screen Negative U Marijuana (THC) Screen Negative 08/12/18 16:18 PT with INR INR Sodium 138 Potassium 4.3 Chloride 102 Carbon Dioxide 29 Anion Gap 7 L BUN 20 H Creatinine 1.0 Creat Clearance w eGFR 54.20 Random Glucose 147 H Calcium 9.5 Total Bilirubin 0.6 AST 41 H ALT 40 Alkaline Phosphatase 97 Creatine Kinase 319 H Creatine Kinase Index 0.9 CK-MB (CK-2) 2.9 Troponin I < 0.02 Total Protein 8.2 Albumin 4.4 Urine Color Urine Appearance Urine pH Ur Specific [place] Urine Protein Urine Glucose (UA) Urine Ketones Urine Blood Urine Nitrite Urine Bilirubin Urine Urobilinogen Ur Leukocyte Esterase Urine WBC (Auto) Urine RBC (Auto) Ur Epithelial Cells Hyaline Casts Opiates Screen Methadone Screen Barbiturate Screen Phencyclidine Screen Ur Amphetamines Screen MDMA (Ecstasy) Screen Benzodiazepines Screen Cocaine Screen U Marijuana (THC) Screen 08/12/18 16:42 RBC 4.39 MCV 91.5 MCHC 33.6 RDW 13.8 MPV 9.8 Neutrophils % 52.7 Lymphocytes % 37.8 Monocytes % 7.3 Eosinophils % 2.0 D Basophils % 0.2 - Medications Given in the ED: ED Medications Discontinued Medications Generic Name Dose Route Start Last Admin Trade Name Lilliana PRN Reason Stop Dose Admin Acetaminophen 1,000 mg 08/12/18 16:02 08/12/18 16:50 Ofirmev Injection - IVPB 08/12/18 16:03 1,000 mg ONCE ONE Administration *DC/Admit/Observation/Transfer Diagnosis at time of Disposition: Laceration of head - Discharge Dispostion Disposition: HOME Condition at time of disposition: Stable - Referrals - Patient Instructions Printed Discharge Instructions: How to Prevent Falls, DI for Closed Head Injury Additional Instructions: You were seen in the emergency room after a fall with a head injury. A CT scan of your head and neck were done which did not reveal any concerning fracture or bleeding in your head. The laceration on your head was cleaned thoroughly and 7 tana were placed along with bacitracin (Neosporin) to your wound. At this point you are medically safe for discharge. You can take Tylenol for any further pain as needed, appropriately according to the packing instructions. You can place bacitracin (Neosporin) on your wound to help with healing and to help prevent any infection. You should wait 24-48 hours before carefully washing your hair. You should see your primary care physician within one week for follow up. You should follow up here in 10 days (Wednesday, 08/22) for a wound check and to possibly have the tana removed. It is recommended that you have more supervision at home as you have a history or repeated falls recently, and if you continue to fall, especially while unsupervised, it can be very dangerous for you. - Post Discharge Activity Laceration/Wound Repair - Laceration/Wound Repair Left Head Wound Length (cm): 6cm Irrigated w/ Saline: Yes Wound Repaired With: Tana (7 tana) Remarks: Patient was offered lidocaine, but she declined. 7 tana inserted Patient tolerated procedure well
--- NOTE | 2018-08-22 11:19 | EKG ---
Test Reason : Blood Pressure : / mmHG Vent. Rate : 072 BPM Atrial Rate : 072 BPM P-R Int : 142 ms QRS Dur : 082 ms QT Int : 386 ms P-R-T Axes : 031 017 054 degrees QTc Int : 422 ms NORMAL SINUS RHYTHM NONSPECIFIC T WAVE ABNORMALITY ABNORMAL ECG WHEN COMPARED WITH ECG OF 02-FEB-2018 14:36, NO SIGNIFICANT CHANGE WAS FOUND Confirmed by YULIYA LOWE MD ([id number]) on 08/22/2018 11:19:05 AM Referred By: Confirmed By:YULIYA LOWE MD
== END 2018-08-12 18:55 | disposition home or self-care (01) ==
LOC: JER 14:46
PROC: 0HQ0XZZ Repair Scalp Skin, External Approach (ICD-10-PCS; principal; 2018-08-12)
PROC: 3E033NZ Introduction of Analgesics, Hypnotics, Sedatives into Peripheral Vein, Percutaneous Approach (ICD-10-PCS; 2018-08-12)
DX: S01.91XA Laceration without foreign body of unspecified part of head, initial encounter (principal); W18.39XA Other fall on same level, initial encounter; Y93.89 Activity, other specified; Y92.89 Other specified places as the place of occurrence of the external cause; Z91.81 History of falling; I48.91 Unspecified atrial fibrillation; K21.9 Gastro-esophageal reflux disease without esophagitis; E11.9 Type 2 diabetes mellitus without complications; F41.8 Other specified anxiety disorders; E78.00 Pure hypercholesterolemia, unspecified
CPT/HCPCS: 17999; 36415; 70450-TC; 72125-TC; 80053; 80307; 81003; 81015; 82550; 82553; 84484; 85025; 85610; 93005; 93010; 96374; 99283-25; J0131

== ENCOUNTER 2019-04-19 13:52 | Observation (INO) | payer OTHER ==
[2019-04-19 14:01] VITALS: BMI 26.6
--- NOTE | 2019-04-19 14:21 | PDOC ---
History of Present Illness - General Chief Complaint: Chest Pain Stated Complaint: CHEST PAIN Time Seen by Provider: 04/19/19 14:03 History Source: Patient Exam Limitations: No Limitations - History of Present Illness Initial Comments: 04/19/19 14:21 Carolyne Avila is a 73F with PMH IDDM, HTN, HLD, asthma, CVA on ASA, known history of dizziness and multiple falls, presenting with chest pressure for the last 2 days. Patient and daughter at bedside report patient has been having chest pressure to the mid chest for the last 2 days, not associated with position/movement or meals, denies SOB/palpitations/nausea/vomiting/diaphoresis. Was admitted to [facility] last week for similar cardiac complaint, has insurance inspector at [facility], was evaluated but testing negative, has implanted recorder, sent home on ranolazine which has not been effective. Sent in to ED by home nurse out of concern for cardiac etiology. Started on insulin in March, recently admitted twice for hyperglycemia and hypoglycemia, daughter says sugar is hard to control despite diet restriction. Patient denies fever/chills, flank pain, but does have polyuria and polydipsia. PMH: asthma on CARLOS, HLD on statin, HTN on metoprolol and lisinopril Other meds: duloxetine PSH: liver resection >10 years ago 2/2 liver mass Past History - Past Medical History Allergies/Adverse Reactions: Allergies Allergy/AdvReac Type Severity Reaction Status Date / Time ibuprofen [From Motrin] Allergy Verified 04/19/19 14:02 shellfish derived Allergy Verified 04/19/19 14:02 Home Medications: Ambulatory Orders Aspirin 81 mg PO DAILY 02/02/18 Calcium (Oyster Shell) [Os-Miguel 500MG -] 500 mg PO BID 02/02/18 Furosemide [Lasix] 20 mg PO DAILY 02/02/18 Lisinopril [Zestril] 2.5 mg PO DAILY 02/02/18 Metformin HCl [Glucophage] 500 mg PO BID 02/02/18 Montelukast Sodium [Singulair] 10 mg PO DAILY 02/02/18 Ranolazine [Ranexa] 1,000 mg PO BID 02/02/18 Rosuvastatin Calcium [Crestor] 40 mg PO DAILY 02/02/18 Sertraline HCl 50 mg PO DAILY 02/02/18 Sitagliptin Phosphate [Januvia] 100 mg PO DAILY 02/02/18 Zolpidem Tartrate [Ambien] 5 mg PO HS 02/02/18 Oxycodone HCl/Acetaminophen [Oxycodone-Acetaminophen 5-325] 1 each PO Q6H #20 tablet MDD 3 02/03/18 Asthma: Yes Cardiac Disorders: Yes (a fib/"chip on heart to help her heart pump") COPD: No Diabetes: Yes GI Disorders: Yes (gerd ulcers, liver sx (biopsy)) HTN: Yes Hypercholesterolemia: Yes Psychiatric Problems: Yes (depression and anxiety) - Surgical History Abdominal Surgery: Yes (liver bipsy) - Psycho Social/Smoking Cessation Hx Smoking History: Never smoked Have you smoked in the past 12 months: No Hx Alcohol Use: No Drug/Substance Use Hx: No Substance Use Type: None Review of Systems - Review of Systems Able to Perform ROS?: Yes Constitutional: Yes: Symptoms Reported. No: Fever, Loss of Appetite HEENTM: No: Symptoms Reported Respiratory: Yes: Cough (chronic 2/2 asthma). No: Shortness of Breath Cardiac (ROS): Yes: Chest Pain, Chest Tightness. No: Irregular Heart Rate, Lightheadedness, Palpitations, Syncope ABD/GI: No: Constipated, Diarrhea, Nausea, Vomiting : Yes: Frequency. No: Burning, Dysuria, Discharge Musculoskeletal: Yes: Back Pain (lumbar, chronic 2/2 fall) Integumentary: No: Symptoms Reported Neurological: No: Symptoms reported Endocrine: Yes: Increased Urine Hematologic/Lymphatic: No: Symptoms Reported All Other Systems: Reviewed and Negative *Physical Exam - Vital Signs Last Vital Signs Temp Pulse Resp BP Pulse Ox 98.3 F 82 18 134/80 98 04/19/19 13:53 04/19/19 13:53 04/19/19 13:53 04/19/19 13:53 04/19/19 13:53 - Physical Exam General Appearance: Yes: Nourished, Appropriately Dressed. No: Apparent Distress HEENT: positive: EOMI, LUIS, Normal Voice, Symmetrical, Pharynx Normal. negative: Scleral Icterus (R), Scleral Icterus (L), Muffled/Hoarse voice, Pharyngeal Erythema, Tonsillar Exudate Neck: positive: Supple. negative: Tender, Rigid, Lymphadenopathy (R), Lymphadenopathy (L) Respiratory/Chest: positive: Chest Tender (tender to palpation to mid-sternum), Lungs Clear, Normal Breath Sounds. negative: Respiratory Distress, Crackles, Rales, Rhonchi, Stridor, Wheezing Cardiovascular: positive: Regular Rhythm, Regular Rate. negative: Edema Gastrointestinal/Abdominal: positive: Normal Bowel Sounds, Flat, Soft, Other ( well-healed V-shaped scar to abdomen). negative: Tender, Pulsatile Mass, Guarding, Rebound Musculoskeletal: positive: Normal Inspection. negative: CVA Tenderness, Decreased Range of Motion Extremity: positive: Normal Capillary Refill, Normal Inspection, Normal Range of Motion. negative: Tender, Pedal Edema, Swelling Integumentary: positive: Normal Color, Dry, Warm Neurologic: positive: Alert, Normal Mood/Affect, Normal Response Heart Score/ECG Review - History History: Moderately suspicious - Electrocardiogram EKG: Normal - Age Age: >/= 65 - Risk Factors Risk Factors Heart Score: Yes Hx Hypercholesterolemia, Yes Hx Hypertension, Yes Hx Diabetes Based on the list above the patient has:: >/=3 risk factors or Hx atherosclerotic disease - Troponin Troponin: </= normal limit - Score Heart Score - Total: 5 ED Treatment Course - LABORATORY CBC & Chemistry Diagram: 04/19/19 14:25 04/19/19 14:25 Medical Decision Making - Medical Decision Making 04/19/19 14:21 Carolyne Avila is a 73F with PMH IDDM, HTN, HLD, asthma, CVA on ASA, known history of dizziness and multiple falls, presenting with chest pressure for the last 2 days. Patient has multiple cardiac risk factors, atypical chest pain, history of CVA, concern high for cardiac etiology, will evaluate via: CMP CBC CP Lipase BNP UA/UC Coags ECG CXR 04/19/19 15:40 ECG shows NSR with HR 75, QRS 433, QTc 433, no evidence of ischemic changes or TWI V2-V3 TWI seen on prior no longer seen Labs unremarkable, initial trop <0.02. Patient presentation concerning for cardiac etiology, has known risk factors and history. HEART Score 5, increased MACE risk, warrants observation. Will contact Dr. Ghosh for telemetry observation. 04/19/19 16:[address] Ghosh, would like tele/obs, will evaluate herself for further cardiology f/u. 04/19/19 16:16 Patient evaluated by attending Dr. Flower, says patient has history of blood clots. Called PMD Dr. Brown Sender with [facility] (#[phone]), no response after 3 calls. Will attempt to contact Shelly Meek to clarify medical history. In meantime will get BLE Dopplers to r/o DVT. Discharge - Discharge Information Problems reviewed: Yes Clinical Impression/Diagnosis: Atypical angina Condition: Stable - Follow up/Referral - Patient Discharge Instructions - Post Discharge Activity
[2019-04-19 14:37] LABS: BASO % 0.4 % (0-2.0); EOS % 5.7 % (0-4.5); HEMATOCRIT 33.5 % (32.4-45.2); HEMOGLOBIN 10.8 GM/dL (10.7-15.3); LYMPH % 51.6 % (8-40); MCH 28.3 pg (25.7-33.7); MCHC 32.3 g/dl (32.0-36.0); MEAN CELL VOLUME 87.8 fl (80-96); MONO % 10.3 % (3.8-10.2); PLATELET COUNT 152 K/MM3 (134-434); RBC 3.82 M/mm3 (3.60-5.2); RDW 14.2 % (11.6-15.6); WHITE BLOOD COUNT 4.3 K/mm3 (4.0-10.0)
[2019-04-19 14:54] LABS: INR 1.12 (0.83-1.09); PROTHROMBIN TIME (PATIENT) 13.2 SEC (9.7-13.0)
[2019-04-19 15:16] LABS: ALBUMIN 3.2 g/dl (3.4-5.0); BILIRUBIN,TOTAL 0.4 mg/dL (0.2-1); CALCIUM 9.3 mg/dL (8.5-10.1); N-TERMINAL BNP 35.8 pg/ml (5-125); TOT PROT 6.5 g/dl (6.4-8.2)
--- NOTE | 2019-04-19 16:39 | PDOC ---
Attending Attestation - Resident Resident Name: PratibhaedvinMatthew - ED Attending Attestation I have performed the following: I have examined & evaluated the patient, The case was reviewed & discussed with the resident, I agree w/resident's findings & plan, Exceptions are as noted - HPI HPI: 04/19/19 16:36 73-year-old female history of diabetes hypertension hyperlipidemia previous CVA frequent falls questionable history of prior DVT here today complaining of chest pain. Patient is here with her daughter who provides additional history states the patient was having chest pain in the night previous described as a pressure-like pain no radiation she did get associated shortness of breath and diaphoresis at that time no nausea no vomiting no radiation to the pain no history of similar symptoms in the past denies any history of previous stent or MT however states that she did have a questionable clot in the right groin area for which she drilled declotting is unclear whether this is arterial or venous clot is not currently on any anticoagulants follows with Dr.Joelle lopez e at [phone] - Physicial Exam PE: 04/19/19 16:37 Neurologic patient is awake alert and oriented [id number] alert no acute distress lungs are clear bilaterally heart is regular without any murmurs rubs or gallops abdomen soft nontender extremities are symmetric pulses bilaterally there is no appreciated edema. E is that he has bilateral CHF the patient is alert and oriented x3 - Medical Decision Making 04/19/19 16:38 Patient was found to be hypoglycemic in the ED with a blood sugar of 54 is a 73- year-old male history of hypertension diabetes hyperlipidemia prior nausea. Concerning story for angina EKG shows no ST-T wave changes CBC CMP troponin and chest x-ray were ordered which are pending. Patient will require admission to telemetry to rule out ACS. Attempt trying to call patient's PCP no response unclear whether or not she had a previous DVT will obtain Dopplers of her leg to rule out DVT Heart Score/ECG Review #1 General ECG Interpretation: Sinus Rhythm, Normal Rate (75), Normal Intervals, No acute ischemic changes
[2019-04-19 18:10] LABS: URINE APPEARANCE CLEAR; URINE BILIRUBIN NEGATIVE (NEGATIVE); URINE COLOR YELLOW; URINE GLUCOSE (UA) NEGATIVE (NEGATIVE); URINE KETONE NEGATIVE (NEGATIVE); URINE LEUK ESTERASE NEGATIVE (NEGATIVE); URINE NITRITE NEGATIVE (NEGATIVE); URINE PROTEIN NEGATIVE (NEGATIVE)
--- NOTE | 2019-04-19 19:36 | HP ---
Admitting History and Physical - Primary Care Physician PCP: Benja Ghosh - Admission History of Present Illness: 73-year-old female history of diabetes hypertension hyperlipidemia previous CVA frequent falls questionable history of prior DVT here today complaining of chest pain. Patient is here with her daughter who provides additional history states the patient was having chest pain in the night previous described as a pressure-like pain no radiation she did get associated shortness of breath and diaphoresis at that time no nausea no vomiting no radiation to the pain no history of similar symptoms in the past denies any history of previous stent or IA however states that she did have a questionable clot in the right groin area for which she drilled declotting is unclear whether this is arterial or venous clot is not currently on any anticoagulants follows with Dr.Joelle jessica yañez at [phone] - - Past Medical History Cardiovascular: Yes: HTN, Hyperlipdemia Endocrine: Yes: Diabetes Mellitus - Smoking History Smoking history: Never smoked Have you smoked in the past 12 months: No - Alcohol/Substance Use Hx Alcohol Use: No Home Medications - Allergies Allergies/Adverse Reactions: Allergies Allergy/AdvReac Type Severity Reaction Status Date / Time ibuprofen [From Motrin] Allergy Verified 04/19/19 14:02 shellfish derived Allergy Verified 04/19/19 14:02 - Home Medications Home Medications: Ambulatory Orders Aspirin 81 mg PO DAILY 02/02/18 Calcium (Oyster Shell) [Os-Miguel 500MG -] 500 mg PO BID 02/02/18 Lisinopril [Zestril] 2.5 mg PO DAILY 02/02/18 Metformin HCl [Glucophage] 500 mg PO BID 02/02/18 Montelukast Sodium [Singulair] 10 mg PO DAILY 02/02/18 Ranolazine [Ranexa] 1,000 mg PO BID 02/02/18 Rosuvastatin Calcium [Crestor] 40 mg PO DAILY 02/02/18 Duloxetine HCl 30 mg PO DAILY 04/19/19 Famotidine 20 mg PO DAILY 04/19/19 Insulin (Novolog 70/30) [Novolog Mix 70/30 Vial -] 28 ml SQ HS 04/19/19 Insulin (Novolog 70/30) [Novolog Mix 70/30 Vial -] 38 units SQ AM 04/19/19 Metoprolol Succinate 25 mg PO DAILY 04/19/19 Mirtazapine 15 mg PO HS 04/19/19 Sennosides [Senna Laxative] 8.6 mg PO DAILY 04/19/19 Physical Examination Vital Signs: Vital Signs Temperature 98.3 F 04/19/19 13:53 Pulse Rate 82 04/19/19 13:53 Respiratory Rate 18 04/19/19 13:53 Blood Pressure 134/80 04/19/19 13:53 O2 Sat by Pulse Oximetry (%) 98 04/19/19 14:45 Constitutional: Yes: No Distress HENT: Yes: Atraumatic Neck: Yes: Supple Cardiovascular: Yes: Regular Rate and Rhythm Respiratory: Yes: CTA Bilaterally Gastrointestinal: Yes: Normal Bowel Sounds Extremities: Yes: WNL Labs: CBC, BMP 04/19/19 14:25 04/19/19 14:25 Problem List - Problems (1) Atypical angina Assessment/Plan: tele monitoring cardiac profile x2 cardio consult echo Code(s): I20.8 - OTHER FORMS OF ANGINA PECTORIS (2) Hypertensive cardiovascular disease Assessment/Plan: monitor Code(s): I11.9 - HYPERTENSIVE HEART DISEASE WITHOUT HEART FAILURE Qualifiers: Heart failure presence: without heart failure Qualified Code(s): I11.9 - Hypertensive heart disease without heart failure (3) Type 2 diabetes mellitus Assessment/Plan: on meds insulin bgms Code(s): E11.9 - TYPE 2 DIABETES MELLITUS WITHOUT COMPLICATIONS Qualifiers: Diabetes mellitus retirement insulin use: without rodent exterminator use Assessment/Plan Laboratory Tests 04/19/19 04/19/19 04/19/19 14:25 14:25 14:25 WBC 4.3 RBC 3.82 Hgb 10.8 Hct 33.5 D MCV 87.8 MCH 28.3 MCHC 32.3 RDW 14.2 Plt Count 152 MPV 9.0 Absolute Neuts (auto) 1.4 L Neutrophils % 32.0 L D Lymphocytes % 51.6 H D Monocytes % 10.3 H Eosinophils % 5.7 H D Basophils % 0.4 Nucleated RBC % 0 PT with INR INR PTT (Actin FS) Sodium 142 Potassium 4.0 Chloride 111 H Carbon Dioxide 28 Anion Gap 4 L BUN 18.0 Creatinine 1.0 Est GFR (CKD-EPI)AfAm 64.27 Est GFR (CKD-EPI)NonAf 55.45 POC Glucometer Random Glucose 61 L Calcium 9.3 Total Bilirubin 0.4 AST 21 ALT 25 Alkaline Phosphatase 120 H Creatine Kinase 102 Troponin I < 0.02 B-Natriuretic Peptide 35.8 Total Protein 6.5 Albumin 3.2 L Lipase 164 Urine Color Urine Appearance Urine pH Ur Specific Lulu Urine Protein Urine Glucose (UA) Urine Ketones Urine Blood Urine Nitrite Urine Bilirubin Urine Urobilinogen Ur Leukocyte Esterase 04/19/19 04/19/19 04/19/19 14:25 14:25 16:05 WBC RBC Hgb Hct MCV MCH MCHC RDW Plt Count MPV Absolute Neuts (auto) Neutrophils % Lymphocytes % Monocytes % Eosinophils % Basophils % Nucleated RBC % PT with INR 13.20 H INR 1.12 H PTT (Actin FS) 33.7 Sodium Potassium Chloride Carbon Dioxide Anion Gap BUN Creatinine Est GFR (CKD-EPI)AfAm Est GFR (CKD-EPI)NonAf POC Glucometer 58 Random Glucose Calcium Total Bilirubin AST ALT Alkaline Phosphatase Creatine Kinase Troponin I B-Natriuretic Peptide Total Protein Albumin Lipase Urine Color Urine Appearance Urine pH Ur Specific Lulu Urine Protein Urine Glucose (UA) Urine Ketones Urine Blood Urine Nitrite Urine Bilirubin Urine Urobilinogen Ur Leukocyte Esterase 04/19/19 04/19/19 04/19/19 16:44 17:45 21:15 WBC RBC Hgb Hct MCV MCH MCHC RDW Plt Count MPV Absolute Neuts (auto) Neutrophils % Lymphocytes % Monocytes % Eosinophils % Basophils % Nucleated RBC % PT with INR INR PTT (Actin FS) Sodium Potassium Chloride Carbon Dioxide Anion Gap BUN Creatinine Est GFR (CKD-EPI)AfAm Est GFR (CKD-EPI)NonAf POC Glucometer 106 Random Glucose Calcium Total Bilirubin AST ALT Alkaline Phosphatase Creatine Kinase 93 Troponin I < 0.02 B-Natriuretic Peptide Total Protein Albumin Lipase Urine Color Yellow Urine Appearance Clear Urine pH 7.0 Ur Specific Lulu 1.009 L Urine Protein Negative Urine Glucose (UA) Negative Urine Ketones Negative Urine Blood Negative Urine Nitrite Negative Urine Bilirubin Negative Urine Urobilinogen 1.0 Ur Leukocyte Esterase Negative 04/19/19 04/20/19 04/20/19 21:52 07:17 11:17 WBC RBC Hgb Hct MCV MCH MCHC RDW Plt Count MPV Absolute Neuts (auto) Neutrophils % Lymphocytes % Monocytes % Eosinophils % Basophils % Nucleated RBC % PT with INR INR PTT (Actin FS) Sodium Potassium Chloride Carbon Dioxide Anion Gap BUN Creatinine Est GFR (CKD-EPI)AfAm Est GFR (CKD-EPI)NonAf POC Glucometer 126 114 149 Random Glucose Calcium Total Bilirubin AST ALT Alkaline Phosphatase Creatine Kinase Troponin I B-Natriuretic Peptide Total Protein Albumin Lipase Urine Color Urine Appearance Urine pH Ur Specific Lulu Urine Protein Urine Glucose (UA) Urine Ketones Urine Blood Urine Nitrite Urine Bilirubin Urine Urobilinogen Ur Leukocyte Esterase 04/20/19 04/20/19 12:15 16:46 WBC RBC Hgb Hct MCV MCH MCHC RDW Plt Count MPV Absolute Neuts (auto) Neutrophils % Lymphocytes % Monocytes % Eosinophils % Basophils % Nucleated RBC % PT with INR INR PTT (Actin FS) Sodium Potassium Chloride Carbon Dioxide Anion Gap BUN Creatinine Est GFR (CKD-EPI)AfAm Est GFR (CKD-EPI)NonAf POC Glucometer 128 Random Glucose Calcium Total Bilirubin AST ALT Alkaline Phosphatase Creatine Kinase Troponin I < 0.02 B-Natriuretic Peptide Total Protein Albumin Lipase Urine Color Urine Appearance Urine pH Ur Specific Lulu Urine Protein Urine Glucose (UA) Urine Ketones Urine Blood Urine Nitrite Urine Bilirubin Urine Urobilinogen Ur Leukocyte Esterase Active Medications Generic Name Dose Route Start Last Admin Trade Name Omarq PRN Reason Stop Dose Admin Acetaminophen 650 mg 04/19/19 22:37 04/20/19 07:04 Tylenol - PO 650 mg Q6H PRN Administration PAIN LEVEL 1-5 Aspirin 81 mg 04/20/19 10:00 04/20/19 10:29 Asa - PO 81 mg DAILY ELEN Administration Duloxetine HCl 30 mg 04/20/19 10:00 04/20/19 10:29 Cymbalta - PO 30 mg DAILY ELEN Administration Insulin Aspart 1 vial 04/19/19 22:00 04/20/19 17:00 Novolog Vial Sliding Scale - SQ 2 units ACHS ELEN Administration Protocol Lisinopril 2.5 mg 04/20/19 10:00 04/20/19 10:29 Prinivil PO 2.5 mg DAILY ELEN Administration Metformin HCl 500 mg 04/19/19 22:00 04/20/19 16:51 Glucophage - PO 500 mg BIDI ELEN Administration Metoprolol Succinate 25 mg 04/20/19 10:00 04/20/19 10:29 Toprol Xl - PO 25 mg DAILY ELEN Administration Mirtazapine 15 mg 04/19/19 22:00 04/19/19 22:30 Remeron - PO 15 mg HS ELEN Administration Montelukast Sodium 10 mg 04/20/19 22:00 Singulair - PO HS ELEN Ranolazine 1,000 mg 04/19/19 22:00 04/20/19 10:29 Ranexa - PO 1,000 mg BID ELEN Administration Rosuvastatin Calcium 40 mg 04/20/19 22:00 Crestor - PO HS ELEN
[2019-04-19] MEDS ORDERED: MIRTAZAPINE 15 MG TABLET (FP) ONE (21:38)
[2019-04-19] MEDS ORDERED: metFORMIN HCL 500 MG TABLET (FP) ONE (21:38)
[2019-04-19] MEDS ORDERED: INSULIN (NOVOLOG MIX 70/30) 100 UNITS/ML MDV SQ SCH (22:00)
[2019-04-19] MEDS: RANOLAZINE E.R. 1,000 MG TABLET (FP) PO SCH (22:30)
[2019-04-19] MEDS: metFORMIN HCL 500 MG TABLET (FP) PO SCH (22:30)
[2019-04-19] MEDS: INSULIN SLIDING SCALE (NOVOLOG) 1 VIAL SQ SCH (22:30)
[2019-04-19] MEDS: MIRTAZAPINE 15 MG TABLET (FP) PO SCH (22:30)
[2019-04-19] MEDS ORDERED: ACETAMINOPHEN 325 MG TABLET (FP) PO PRN (22:37)
[2019-04-19] MEDS ORDERED: ACETAMINOPHEN 325 MG TABLET (FP) ONE (22:55)
[2019-04-20] MEDS ORDERED: metFORMIN HCL 500 MG TABLET (FP) ONE ×2 (06:59→16:43)
[2019-04-20] MEDS ORDERED: ACETAMINOPHEN 325 MG TABLET (FP) ONE (07:00)
[2019-04-20] MEDS ORDERED: INSULIN (NOVOLOG MIX 70/30) 100 UNITS/ML MDV SQ SCH (07:00)
[2019-04-20] MEDS: metFORMIN HCL 500 MG TABLET (FP) PO SCH ×2 (07:04→16:51)
[2019-04-20] MEDS: INSULIN SLIDING SCALE (NOVOLOG) 1 VIAL SQ SCH ×4 (07:23→22:10)
--- NOTE | 2019-04-20 09:21 | CON.CARD ---
Consult Consult Specialty:: Cardiology Referred by:: Benja Ghosh MD Reason for Consultation:: Chest pain - History of Present Illness Chief Complaint: Chest pain History of Present Illness: 73 year old with PMHx of chronic dizziness, HTN, HLD, diastolic dysfunction, asthma, colon polyps, previous CVA frequent falls post ILR questionable history of prior DVT here presents for evaluation of chest pressure with dyspnea and diaphoresis without near or true syncope, palpitations, orthopnea, PND or LE edema. Currently asymptomatic, ruled out for TX. Daughter reports stress testing and echo within last year at [facility]. - History Source History Provided By: Medical Record Limitations to Obtaining History: Poor Historian - Past Medical History Cardio/Vascular: Yes: HTN, Hyperlipdemia ...: No Endocrine: Yes: Diabetes Mellitus - Alcohol/Substance Use Hx Alcohol Use: No - Smoking History Smoking history: Never smoked Have you smoked in the past 12 months: No - Social History Usual Living Arrangement: Alone (lives alone in apartment without stairs, previously ambulated with both SC and RW) Home Medications - Allergies Allergies/Adverse Reactions: Allergies Allergy/AdvReac Type Severity Reaction Status Date / Time ibuprofen [From Motrin] Allergy Verified 04/19/19 14:02 shellfish derived Allergy Verified 04/19/19 14:02 - Home Medications Home Medications: Ambulatory Orders Aspirin 81 mg PO DAILY 02/02/18 Calcium (Oyster Shell) [Os-Miguel 500MG -] 500 mg PO BID 02/02/18 Lisinopril [Zestril] 2.5 mg PO DAILY 02/02/18 Metformin HCl [Glucophage] 500 mg PO BID 02/02/18 Montelukast Sodium [Singulair] 10 mg PO DAILY 02/02/18 Ranolazine [Ranexa] 1,000 mg PO BID 02/02/18 Rosuvastatin Calcium [Crestor] 40 mg PO DAILY 02/02/18 Duloxetine HCl 30 mg PO DAILY 04/19/19 Famotidine 20 mg PO DAILY 04/19/19 Insulin (Novolog 70/30) [Novolog Mix 70/30 Vial -] 38 units SQ AM 04/19/19 Insulin (Novolog 70/30) [Novolog Mix 70/30 Vial] 28 ml SQ HS 04/19/19 Metoprolol Succinate 25 mg PO DAILY 04/19/19 Mirtazapine 15 mg PO HS 04/19/19 Sennosides [Senna Laxative] 8.6 mg PO DAILY 04/19/19 Review of Systems - Review of Systems Cardiovascular: reports: Chest Pain Respiratory: reports: SOB Vital Signs: Vital Signs Temperature 98.7 F 04/20/19 07:46 Pulse Rate 76 04/20/19 07:46 Respiratory Rate 20 04/20/19 07:46 Blood Pressure 116/73 04/20/19 07:46 O2 Sat by Pulse Oximetry (%) 97 04/20/19 07:46 Constitutional: Yes: No Distress, Calm Neck: Yes: Supple Respiratory: Yes: Regular, CTA Bilaterally Gastrointestinal: Yes: Normal Bowel Sounds, Soft Cardiovascular: Yes: Regular Rate and Rhythm JVD: No Carotid Bruit: No Heart Sounds: Yes: S1, S2 Edema: No - Other Data Labs, Other Data: CBC, BMP 04/19/19 14:25 04/19/19 14:25 INR, PTT INR 1.12 (0.83-1.09) H 04/19/19 14:25 Troponin, BNP 04/19/19 04/19/19 04/19/19 14:25 14:25 21:15 Troponin I < 0.02 < 0.02 B-Natriuretic Peptide 35.8 Troponin, BNP 04/19/19 04/19/19 04/19/19 14:25 14:25 21:15 Troponin I < 0.02 < 0.02 B-Natriuretic Peptide 35.8 NSR @ 75 w/o ST-T changes Tele: NSR occ PVC Ejection Fraction %: LVEF > or = 40 % Imaging - Results Chest X-ray: Report Reviewed (NAD) Ultrasound: Report Reviewed (No DVT bilaterally) Problem List - Problems (1) Chest pain Code(s): R07.9 - CHEST PAIN, UNSPECIFIED Qualifiers: Chest pain type: unspecified Qualified Code(s): R07.9 - Chest pain, unspecified (2) Diastolic dysfunction Code(s): I51.9 - HEART DISEASE, UNSPECIFIED (3) Hyperlipidemia associated with type 2 diabetes mellitus Code(s): E11.69 - TYPE 2 DIABETES MELLITUS WITH OTHER SPECIFIED COMPLICATION; E78.5 - HYPERLIPIDEMIA, UNSPECIFIED (4) Hypertensive cardiovascular disease Code(s): I11.9 - HYPERTENSIVE HEART DISEASE WITHOUT HEART FAILURE Qualifiers: Heart failure presence: without heart failure Qualified Code(s): I11.9 - Hypertensive heart disease without heart failure (5) Type 2 diabetes mellitus Code(s): E11.9 - TYPE 2 DIABETES MELLITUS WITHOUT COMPLICATIONS Qualifiers: Diabetes mellitus retirement insulin use: without petroleum terminal plant operator use Assessment/Plan 1. Chest pain, dyspnea, ruled out for TX 2. Diastolic dysfunction 3. HTN 4. Hyperlipidemia 5. Asthma 6. Type 2 DM P:1. Patient f/u with [facility], will obtain most recent echo and stress test studies for review 2. Continue ASA 81 qd, Toprol XL 25 qd, lisinopril 2.5 qd, Crestor 40 qd, Ranexa 1000 bid 3. Thank you for consultative opportunity
[2019-04-20] MEDS: DULoxetine HCL 30 MG CAPSULE.DR PO SCH (10:29)
[2019-04-20] MEDS: LISINOPRIL 5 MG TABLET (FP) PO SCH (10:29)
[2019-04-20] MEDS: RANOLAZINE E.R. 1,000 MG TABLET (FP) PO SCH ×2 (10:29→22:09)
[2019-04-20] MEDS: metoPROLOL SUCCINATE 25 MG TAB.SR.24H (FP) PO SCH (10:29)
[2019-04-20] MEDS: ASPIRIN 81 MG CHEWABLE TABLETS PO SCH (10:29)
[2019-04-20] MEDS ORDERED: ONDANSETRON *ODT* 4 MG TABLET ONE (10:52)
--- NOTE | 2019-04-20 11:55 | EKG ---
Test Reason : Blood Pressure : / mmHG Vent. Rate : 075 BPM Atrial Rate : 075 BPM P-R Int : 152 ms QRS Dur : 078 ms QT Int : 388 ms P-R-T Axes : 046 006 059 degrees QTc Int : 433 ms NORMAL SINUS RHYTHM NORMAL ECG WHEN COMPARED WITH ECG OF 12-AUG-2018 16:40, T WAVE INVERSION NO LONGER EVIDENT IN ANTERIOR LEADS Confirmed by HALEY LEIGH MD ([id number]) on 04/20/2019 11:55:16 AM Referred By: Confirmed By:HALEY LEIGH MD
--- NOTE | 2019-04-20 12:09 | ECHO ---
Name: NATI HATCH Exam:Adult Echocardiogram Study Date: 04/20/2019 08:34 AM Age: 73 yrs Reason For Study: Chest pain Height: 62 in Weight: 146 lb BSA: 1.7 m2 MMode/2D Measurements & Calculations IVSd: 0.70 cm Ao root diam: 2.6 cm LVIDd: 3.6 cm LA dimension: 3.2 cm LVIDs: 2.7 cm ACS: 1.9 cm LVPWd: 1.5 cm EDV(Teich): 55.8 ml LVOT diam: 1.8 cm ESV(Teich): 27.9 ml RV S Selwyn: 10.9 cm/sec Doppler Measurements & Calculations MV E max selwyn: 71.1 cm/sec Ao V2 max: 157.1 cm/sec MV A max selwyn: 80.5 cm/sec Ao max P.9 mmHg MV E/A: 0.88 Ao V2 mean: 108.5 cm/sec MV dec time: 0.17 sec Ao mean P.5 mmHg Ao V2 VTI: 36.3 cm FELTON(I,D): 2.0 cm2 AI P1/2t: 886.9 msec FELTON(V,D): 2.1 cm2 AI max selwyn: 311.3 cm/sec LV V1 max P.0 mmHg AI max P.8 mmHg LV V1 mean P.9 mmHg AI dec slope: 102.8 cm/sec2 LV V1 max: 122.2 cm/sec LV V1 mean: 79.7 cm/sec LV V1 VTI: 27.5 cm MR max selwyn: 424.2 cm/sec SV(LVOT): 73.6 ml MR max P.0 mmHg TR max selwyn: 290.2 cm/sec PI end-d selwyn: 103.8 cm/sec TR max P.8 mmHg RVSP(TR): 43.8 mmHg Med Peak E' Selwyn: 6.2 cm/sec RAP systole: 10.0 mmHg Med E/e': 11.4 Lat Peak E' Selwyn: 9.2 cm/sec Lat E/e': 7.8 Procedure A complete two-dimensional transthoracic echocardiogram was performed (2D, M-mode, Doppler and color flow Doppler). Left Ventricle The left ventricular size, thickness and function are normal. The left ventricular ejection fraction is normal. Ejection Fraction = 60-65%. The left ventricular wall motion is normal. Right Ventricle The right ventricle is normal in size and function. Atria Normal left and right atrial size and function. Mitral Valve There is no mitral regurgitation noted. Tricuspid Valve There is mild tricuspid regurgitation. There is mild pulmonary hypertension. Aortic Valve The aortic valve is trileaflet. No hemodynamically significant valvular aortic stenosis. No aortic regurgitation is present. Pulmonic Valve There is no pulmonic valvular regurgitation. Great Vessels The aortic root is normal size. Pericardium/Pleura There is no pericardial effusion. Interpretation Summary The left ventricular size, thickness and function are normal The right ventricle is normal in size and function. There is mild tricuspid regurgitation. There is mild pulmonary hypertension. MD Jerod Rosas 04/20/2019 12:08 PM
--- NOTE | 2019-04-20 14:28 | DS ---
Physical Examination Vital Signs: Vital Signs Temperature 98.7 F 04/20/19 07:46 Pulse Rate 75 04/20/19 10:30 Respiratory Rate 20 04/20/19 10:30 Blood Pressure 117/63 04/20/19 10:30 O2 Sat by Pulse Oximetry (%) 97 04/20/19 13:16 Labs: CBC, BMP 04/19/19 14:25 04/19/19 14:25 Discharge Summary Problems reviewed: Yes Reason For Visit: ATYPICAL CHEST PAIN Current Active Problems Atypical angina (Acute) Chest pain (Acute) Condition: Stable - Instructions Referrals: ON STAFF,NOT [Primary Care Provider] - - Home Medications Comprehensive Discharge Medication List: Ambulatory Orders Aspirin 81 mg PO DAILY 02/02/18 Calcium (Oyster Shell) [Os-Miguel 500MG -] 500 mg PO BID 02/02/18 Lisinopril [Zestril] 2.5 mg PO DAILY 02/02/18 Metformin HCl [Glucophage] 500 mg PO BID 02/02/18 Montelukast Sodium [Singulair] 10 mg PO DAILY 02/02/18 Ranolazine [Ranexa] 1,000 mg PO BID 02/02/18 Rosuvastatin Calcium [Crestor] 40 mg PO DAILY 02/02/18 Duloxetine HCl 30 mg PO DAILY 04/19/19 Famotidine 20 mg PO DAILY 04/19/19 Insulin (Novolog 70/30) [Novolog Mix 70/30 Vial -] 28 ml SQ HS 04/19/19 Insulin (Novolog 70/30) [Novolog Mix 70/30 Vial -] 38 units SQ AM 04/19/19 Metoprolol Succinate 25 mg PO DAILY 04/19/19 Mirtazapine 15 mg PO HS 04/19/19 Sennosides [Senna Laxative] 8.6 mg PO DAILY 04/19/19
--- NOTE | 2019-04-20 19:35 | PN ---
Progress Note, Physician - Current Medication List Current Medications: Active Medications Acetaminophen (Tylenol -) 650 mg PO Q6H PRN PRN Reason: PAIN LEVEL 1-5 Last Admin: 04/20/19 07:04 Dose: 650 mg Aspirin (Asa -) 81 mg PO DAILY [facility] Last Admin: 04/20/19 10:29 Dose: 81 mg Duloxetine HCl (Cymbalta -) 30 mg PO DAILY [facility] Last Admin: 04/20/19 10:29 Dose: 30 mg Insulin Aspart (Novolog Vial Sliding Scale -) 1 vial SQ [facility]; Protocol Last Admin: 04/20/19 17:00 Dose: 2 units Lisinopril (Prinivil) 2.5 mg PO DAILY [facility] Last Admin: 04/20/19 10:29 Dose: 2.5 mg Metformin HCl (Glucophage -) 500 mg PO BIDI [facility] Last Admin: 04/20/19 16:51 Dose: 500 mg Metoprolol Succinate (Toprol Xl -) 25 mg PO DAILY [facility] Last Admin: 04/20/19 10:29 Dose: 25 mg Mirtazapine (Remeron -) 15 mg PO [facility] Last Admin: 04/19/19 22:30 Dose: 15 mg Montelukast Sodium (Singulair -) 10 mg PO [facility] Ranolazine (Ranexa -) 1,000 mg PO BID [facility] Last Admin: 04/20/19 10:29 Dose: 1,000 mg Rosuvastatin Calcium (Crestor -) 40 mg PO [facility] - Objective Vital Signs: Vital Signs Temperature 98.7 F 04/20/19 07:46 Pulse Rate 76 04/20/19 17:00 Respiratory Rate 20 04/20/19 17:00 Blood Pressure 127/87 04/20/19 17:00 O2 Sat by Pulse Oximetry (%) 98 04/20/19 17:00 Constitutional: Yes: No Distress HENT: Yes: Atraumatic Neck: Yes: Supple Cardiovascular: Yes: Regular Rate and Rhythm Respiratory: Yes: CTA Bilaterally Gastrointestinal: Yes: Normal Bowel Sounds Extremities: Yes: WNL Neurological: Yes: Alert, Oriented Labs: CBC, BMP 04/19/19 14:25 04/19/19 14:25 INR, PTT INR 1.12 (0.83-1.09) H 04/19/19 14:25 Problem List - Problems (1) Atypical angina Assessment/Plan: chest pain reproducible awaiting cardio clearance to be dc trop negative Code(s): I20.8 - OTHER FORMS OF ANGINA PECTORIS (2) Hypertensive cardiovascular disease Assessment/Plan: monitor Code(s): I11.9 - HYPERTENSIVE HEART DISEASE WITHOUT HEART FAILURE Qualifiers: Heart failure presence: without heart failure Qualified Code(s): I11.9 - Hypertensive heart disease without heart failure (3) Type 2 diabetes mellitus Assessment/Plan: on meds insulin bgms Code(s): E11.9 - TYPE 2 DIABETES MELLITUS WITHOUT COMPLICATIONS Qualifiers: Diabetes mellitus usp insulin use: without usp use
[2019-04-20] MEDS ORDERED: ACETAMINOPHEN 325 MG TABLET (FP) PO PRN (19:36)
[2019-04-20] MEDS ORDERED: RANOLAZINE E.R. 500 MG TABLET (FP) ONE (21:40)
[2019-04-20] MEDS ORDERED: MONTELUKAST NA 10 MG TABLET PO SCH (22:00)
[2019-04-20] MEDS ORDERED: ROSUVASTATIN CA 40 MG TABLET PO SCH (22:00)
[2019-04-20] MEDS: MIRTAZAPINE 15 MG TABLET (FP) PO SCH (22:09)
[2019-04-20] MEDS ORDERED: ROSUVASTATIN CA 20 MG TABLET (FP) PO SCH ×2 (22:12→22:30)
[2019-04-21 05:51] VITALS: TEMP 97.7
[2019-04-21] MEDS: metFORMIN HCL 500 MG TABLET (FP) PO SCH (06:19)
[2019-04-21] MEDS: INSULIN SLIDING SCALE (NOVOLOG) 1 VIAL SQ SCH ×2 (06:20→12:34)
[2019-04-21 08:28] VITALS: BP 137/76; PULSE 88
[2019-04-21] MEDS ORDERED: RANOLAZINE E.R. 500 MG TABLET (FP) ONE (10:29)
[2019-04-21] MEDS: RANOLAZINE E.R. 1,000 MG TABLET (FP) PO SCH (10:36)
[2019-04-21] MEDS: DULoxetine HCL 30 MG CAPSULE.DR PO SCH (10:36)
[2019-04-21] MEDS: LISINOPRIL 5 MG TABLET (FP) PO SCH (10:36)
[2019-04-21] MEDS: ASPIRIN 81 MG CHEWABLE TABLETS PO SCH (10:36)
[2019-04-21] MEDS: metoPROLOL SUCCINATE 25 MG TAB.SR.24H (FP) PO SCH (10:36)
--- NOTE | 2019-04-21 10:39 | PN ---
Progress Note, Physician History of Present Illness: Denies recurrent chest pressure with dyspnea and diaphoresis without near or true syncope, palpitations, orthopnea, PND or LE edema. Remains asymptomatic, ruled out for [place]. - Current Medication List Current Medications: Active Medications Acetaminophen (Tylenol -) 650 mg PO Q6H PRN PRN Reason: PAIN LEVEL 1-5 Last Admin: 04/20/19 07:04 Dose: 650 mg Acetaminophen (Tylenol -) 650 mg PO Q6H PRN PRN Reason: FEVER Last Admin: 04/21/19 10:36 Dose: 650 mg Aspirin (Asa -) 81 mg PO DAILY [facility] Last Admin: 04/21/19 10:36 Dose: 81 mg Duloxetine HCl (Cymbalta -) 30 mg PO DAILY [facility] Last Admin: 04/21/19 10:36 Dose: 30 mg Insulin Aspart (Novolog Vial Sliding Scale -) [address] [facility]; Protocol Last Admin: 04/21/19 06:20 Dose: 4 units Lisinopril (Prinivil) 2.5 mg PO DAILY [facility] Last Admin: 04/21/19 10:36 Dose: 2.5 mg Metformin HCl (Glucophage -) 500 mg PO BIDI [facility] Last Admin: 04/21/19 06:19 Dose: 500 mg Metoprolol Succinate (Toprol Xl -) 25 mg PO DAILY [facility] Last Admin: 04/21/19 10:36 Dose: 25 mg Mirtazapine (Remeron -) 15 mg PO [facility] Last Admin: 04/20/19 22:09 Dose: 15 mg Montelukast Sodium (Singulair -) 10 mg PO [facility] Last Admin: 04/20/19 22:08 Dose: 10 mg Ranolazine (Ranexa -) 1,000 mg PO BID [facility] Last Admin: 04/21/19 10:36 Dose: 1,000 mg Rosuvastatin Calcium (Crestor -) 40 mg PO [facility] Last Admin: 04/20/19 22:45 Dose: 40 mg - Objective Vital Signs: Vital Signs Temperature 97.7 F 04/21/19 05:49 Pulse Rate 88 04/21/19 08:28 Respiratory Rate 18 04/21/19 08:28 Blood Pressure 137/76 04/21/19 08:28 O2 Sat by Pulse Oximetry (%) 99 04/21/19 05:49 Constitutional: Yes: No Distress, Calm Neck: Yes: Supple Cardiovascular: Yes: Regular Rate and Rhythm Respiratory: Yes: Regular, CTA Bilaterally Gastrointestinal: Yes: Normal Bowel Sounds, Soft Edema: No Labs: CBC, BMP 04/19/19 14:25 04/19/19 14:25 INR, PTT INR 1.12 (0.83-1.09) H 04/19/19 14:25 - ....Imaging EKG: Report Reviewed (Tele: NSR) Problem List - Problems (1) Chest pain Code(s): R07.9 - CHEST PAIN, UNSPECIFIED Qualifiers: Chest pain type: unspecified Qualified Code(s): R07.9 - Chest pain, unspecified (2) Diastolic dysfunction Code(s): I51.9 - HEART DISEASE, UNSPECIFIED (3) Hyperlipidemia associated with type 2 diabetes mellitus Code(s): E11.69 - TYPE 2 DIABETES MELLITUS WITH OTHER SPECIFIED COMPLICATION; E78.5 - HYPERLIPIDEMIA, UNSPECIFIED (4) Hypertensive cardiovascular disease Code(s): I11.9 - HYPERTENSIVE HEART DISEASE WITHOUT HEART FAILURE Qualifiers: Heart failure presence: without heart failure Qualified Code(s): I11.9 - Hypertensive heart disease without heart failure (5) Type 2 diabetes mellitus Code(s): E11.9 - TYPE 2 DIABETES MELLITUS WITHOUT COMPLICATIONS Qualifiers: Diabetes mellitus usp insulin use: without intermediate accountant use Assessment/Plan 08/18/2017 Echo at [facility]: Normal LV size, mild LVH, normal LV fxn, abnl LV compliance, RVSP 42 mmHg 1. Chest pain, dyspnea, ruled out for [place] 2. Diastolic dysfunction 3. HTN 4. Hyperlipidemia 5. Asthma 6. Type 2 DM 7. H/o ILR for frequent falls P:1. Ruled out for [place] 2. Patient f/u with [facility], will obtain most recent stress test studies for review 3. Continue ASA 81 qd, Toprol XL 25 qd, lisinopril 2.5 qd, Crestor 40 qd, Ranexa 1000 bid 4. Further recommendations after stress test review
--- NOTE | 2019-04-21 17:22 | DS ---
Physical Examination Vital Signs: Vital Signs Temperature 97.7 F 04/21/19 05:49 Pulse Rate 88 04/21/19 08:28 Respiratory Rate 18 04/21/19 08:28 Blood Pressure 137/76 04/21/19 08:28 O2 Sat by Pulse Oximetry (%) 99 04/21/19 05:49 Constitutional: Yes: No Distress HENT: Yes: Atraumatic Neck: Yes: Supple Cardiovascular: Yes: Regular Rate and Rhythm Respiratory: Yes: CTA Bilaterally Gastrointestinal: Yes: Normal Bowel Sounds Extremities: Yes: WNL Edema: No Neurological: Yes: Alert, Oriented Labs: CBC, BMP 04/19/19 14:25 04/19/19 14:25 Discharge Summary Problems reviewed: Yes Reason For Visit: ATYPICAL CHEST PAIN Current Active Problems Atypical angina (Acute) Chest pain (Acute) Condition: Stable - Instructions Referrals: ON STAFF,NOT [Primary Care Provider] - - Home Medications Comprehensive Discharge Medication List: Ambulatory Orders Aspirin 81 mg PO DAILY 02/02/18 Calcium (Oyster Shell) [Os-Miguel 500MG -] 500 mg PO BID 02/02/18 Lisinopril [Zestril] 2.5 mg PO DAILY 02/02/18 Metformin HCl [Glucophage] 500 mg PO BID 02/02/18 Montelukast Sodium [Singulair] 10 mg PO DAILY 02/02/18 Ranolazine [Ranexa] 1,000 mg PO BID 02/02/18 Rosuvastatin Calcium [Crestor] 40 mg PO DAILY 02/02/18 Duloxetine HCl 30 mg PO DAILY 04/19/19 Famotidine 20 mg PO DAILY 04/19/19 Insulin (Novolog 70/30) [Novolog Mix 70/30 Vial -] 28 ml SQ HS 04/19/19 Insulin (Novolog 70/30) [Novolog Mix 70/30 Vial -] 38 units SQ AM 04/19/19 Metoprolol Succinate 25 mg PO DAILY 04/19/19 Mirtazapine 15 mg PO HS 04/19/19 Sennosides [Senna Laxative] 8.6 mg PO DAILY 04/19/19 dc home fu cardiology
== END 2019-04-21 18:22 | disposition home or self-care (01) ==
LOC: JER 13:52 → JERBED 14:51 → J4W 04-20 18:28
PROVIDERS: ADMIT Internal Medicine; ATTEND Internal Medicine
DX: I20.8 Other forms of angina pectoris (principal); R07.89 Other chest pain; I11.9 Hypertensive heart disease without heart failure; E11.69 Type 2 diabetes mellitus with other specified complication; E78.5 Hyperlipidemia, unspecified; J45.909 Unspecified asthma, uncomplicated; R29.6 Repeated falls; I48.91 Unspecified atrial fibrillation; K21.9 Gastro-esophageal reflux disease without esophagitis; F41.9 Anxiety disorder, unspecified; F32.9 Major depressive disorder, single episode, unspecified; I51.9 Heart disease, unspecified; Z88.6 Allergy status to analgesic agent; Z91.013 Allergy to seafood; Z79.82 Long term (current) use of aspirin; Z79.84 Long term (current) use of oral hypoglycemic drugs; Z86.73 Personal history of transient ischemic attack (TIA), and cerebral infarction without residual deficits; Z79.4 Long term (current) use of insulin; Z95.818 Presence of other cardiac implants and grafts
CPT/HCPCS: 36415; 71046-TC-FY; 80053; 81003; 82550; 82962; 83690; 83880; 84484; 85025; 85610; 85730; 87086; 93005; 93010; 93306-TC; 93970-TC; 99285-25; G0378

== ENCOUNTER 2023-07-02 04:09 | Day surgery (SDC) | payer OTHER ==
[2023-06-29 14:47] VITALS: BMI 26.5
[2023-07-02] MEDS ORDERED: LIDOCAINE HCL/PF 1% SDV 5ML VIAL ONE (07:19)
[2023-07-02] MEDS ORDERED: DEXAMETHASONE SOD PHOSPHATE 4 MG/1 ML VIAL ONE (07:19)
[2023-07-02] MEDS ORDERED: DEXAMETHASONE SOD PHOSPHATE 10 MG/1 ML VIAL ONE (07:19)
[2023-07-02 11:18] VITALS: RESP 18
[2023-07-02] MEDS ORDERED: LIDOCAINE HCL 1% PRESERVATIVE FREE - 30ML VIAL IJ ONE (12:23)
[2023-07-02] MEDS ORDERED: DEXAMETHASONE SOD PHOSPHATE 10 MG/1 ML VIAL IM ONE (12:23)
[2023-07-02] MEDS ORDERED: IOHEXOL 180 MG/1 ML ML IJ ONE ×2 (12:23)
[2023-07-02 13:06] VITALS: BP 160/99; PULSE 74; TEMP 98.9
[2023-07-02] MEDS ORDERED: ACETAMINOPHEN 500 MG TABLET (FP) PO PRN (13:39)
== END 2023-07-02 13:35 | disposition home or self-care (01) ==
LOC: JASU-SURG 04:09
PROVIDERS: ATTEND Pain Medicine Pain Medicine
PROC: 3E0R3BZ Introduction of Anesthetic Agent into Spinal Canal, Percutaneous Approach (ICD-10-PCS; 2023-07-02)
PROC: 3E0R33Z Introduction of Anti-inflammatory into Spinal Canal, Percutaneous Approach (ICD-10-PCS; principal; 2023-07-02 12:00)
DX: M54.16 Radiculopathy, lumbar region (principal)
CPT/HCPCS: 76000-TC-FY; J1100

== ENCOUNTER → 2023-07-30 | Day surgery (SDC) | payer OTHER ==
[2023-07-29 08:48] VITALS: BMI 27.1
[~2023-07-30] MED LIST: ACETAMINOPHEN 500 MG TABLET (FP) PO PRN
[2023-07-30] MEDS: BUPIVACAINE HCL/PF 0.75% 10 ML VIAL NR ONE
[2023-07-30] MEDS: LIDOCAINE 1% P/F 10 MG/ML VIAL INF ONE
== END | disposition home or self-care (01) ==
LOC: JASU-SURG 05:08
PROVIDERS: ATTEND Pain Medicine Pain Medicine
DX: Z53.8 Procedure and treatment not carried out for other reasons (principal)